=== PATIENT | female | born 1970 | race Caucasian/White ===

== ENCOUNTER → 2018-04-10 | Outpatient (CLI) | payer BC, OTHER ==
[~2018-04-10] MED LIST: ACET500; ALBIPROI INH; ALBU90OI; ALBU90OI INH; ALBU90OI6 INH; ATOR20 PO; ATOR40TA PO; AZIT500 PO; BENTYL20 MG PO; BENZ100A PO; CEPH500 PO; CIPR250 PO; CODGUAEL PO; CYCL10 PO; DIPATR PO; EPIN.3I IM; EPIPEN 2-P0.3 MG/0.3 IM; ESOM20; ESOM20 PO; ESTR2 PO; GEMF600; GLIP10 PO; GLIP2.5ER PO; HYDACE5 PO; HYDACE5325 PO; HYDACE7.5 PO; HYDGUAL120 PO; HYDMOR2 PO; HYOS.125 SL; IBUP600 PO; IBUP800; IBUP800 PO; INSULANPEN SC; LORA1 PO; METF500 PO; METF500C PO; NAPR500 PO; NAPR550 PO; Norco 5-325 Ta1 EACH PO; OXYACE5T PO; PROACE100 PO; PROM25 PO; Pyridium200 MG PO; QVAR7.3 G1 IH; RANI150 PO; RXHYDGUAS PO; RXHYDMOR2 PO; RXHYOS.125 PO; RXNAPNA550 PO; RXPROACE PO; RXPROM25 PO; RXSULTRIDS PO; RXTRAM50 PO; SITA25T2 PO; SULTRIDS PO; TRAM50 PO; prilosec
[2018-04-10 18:01] LABS: BASOPHILS ABSOLUTE AUTO 0.02 K/mm3 (0.00-0.23); BASOPHILS PERCENT AUTO 0 % (0-2); EOSINOPHILS ABSOLUTE AUTO 0.06 K/mm3 (0.00-0.68); EOSINOPHILS PERCENT AUTO 1 % (0-6); Hematocrit 39.9 % (33.0-51.0); IMMATURE GRAN ABSOLUTE AUTO 0.06 K/mm3 (0.00-0.10); IMMATURE GRAN PERCENT AUTO 1 % (0-1); LYMPHOCYTES ABSOLUTE AUTO 2.08 K/mm3 (0.84-5.20); LYMPHOCYTES PERCENT AUTO 24 % (21-46); MONOCYTES ABSOLUTE AUTO 0.57 K/mm3 (0.16-1.47); MONOCYTES PERCENT AUTO 7 % (4-13); Mean Corpuscular HGB 33.3 pg (26.0-34.0); Mean Corpuscular HGB Conc 35.1 g/dL (31.5-36.5); Mean Corpuscular Volume 95 fL (80-100); Mean Platelet Volume 11.4 fL (9.1-12.4); NEUTROPHILS ABSOLUTE AUTO 5.94 K/mm3 (1.96-9.15); NEUTROPHILS PERCENT AUTO 68 % (41-73); Platelet Count 217 K/mm3 (150-400); RDW Coefficient Variation 12.6 % (11.7-14.2); RDW Standard Deviation 43.6 fL (35.1-46.3); Red Blood Cell Count 4.21 M/mm3 (3.80-5.20); White Blood Cell Count 8.73 K/mm3 (4.00-11.30)
[2018-04-10 19:26] LABS: Alanine Aminotransfer (ALT/SGP 23 U/L (12-78); Albumin, Blood 3.5 g/dL (3.4-5.0); Albumin/Globulin Ratio 1.1 (0.8-1.8); Alk Phos 73 U/L (50-136); Anion Gap 11 mmol/L (6-16); Aspartate Aminotrans (AST/SGOT 11 U/L (12-37); Bilirubin, Total 0.7 mg/dL (0.1-1.0); Blood Urea Nitrogen 16 mg/dL (8-24); Bun/Creatinine Ratio 26.8 (12.0-20.0); CHOL/HDL RATIO 8.3; CO2, Blood 25 mmol/L (21-32); Calcium, Blood 8.9 mg/dL (8.5-10.1); Chloride, Blood 105 mmol/L (98-108); Cholesterol 232 mg/dL (50-200); Free Thyroxine 0.89 ng/dL (0.70-1.60); Globulin, Blood 3.1 g/dL (2.2-4.0); Glomerular Filtration Rate >60 (60-); Glucose, Blood 195 mg/dL (70-99); HDL Cholesterol 28 mg/dL (>39); LDL/HDL RATIO Unable to Calculate; Low Density Lipoprotein Chol Unable to Calculate mg/dL (0-110); Potassium, Blood 3.2 mmol/L (3.5-5.5); Sodium, Blood 141 mmol/L (136-145); Total Protein, Blood 6.6 g/dL (6.4-8.2); Triglycerides 764 mg/dL (30-160); Very Low Density Lipoprot Chol Unable to Calculate mg/dL (6-32)
== END | disposition home or self-care (01) ==
LOC: LAB 12:30 → LAB SHORT 12:30
PROVIDERS: Nurse Practitioner Adult Health
DX: E78.5 Hyperlipidemia, unspecified (principal); E11.40 Type 2 diabetes mellitus with diabetic neuropathy, unspecified; G62.9 Polyneuropathy, unspecified
CPT/HCPCS: 80053; 80061; 84439; 84443; 84681; 85025

== ENCOUNTER 2018-05-06 11:36 | Emergency (ER) | payer BC, OTHER ==
[~2018-05-06] VITALS: Ht 175.3 cm; Wt 79.8 kg
[2018-05-06 12:28] LABS: BASOPHILS ABSOLUTE AUTO 0.02 K/mm3 (0.00-0.23); BASOPHILS PERCENT AUTO 0 % (0-2); EOSINOPHILS ABSOLUTE AUTO 0.03 K/mm3 (0.00-0.68); EOSINOPHILS PERCENT AUTO 0 % (0-6); Hematocrit 45.3 % (33.0-51.0); Hemoglobin 15.4 g/dL (11.5-16.0); IMMATURE GRAN ABSOLUTE AUTO 0.04 K/mm3 (0.00-0.10); IMMATURE GRAN PERCENT AUTO 0 % (0-1); LYMPHOCYTES ABSOLUTE AUTO 2.09 K/mm3 (0.84-5.20); LYMPHOCYTES PERCENT AUTO 23 % (21-46); MONOCYTES ABSOLUTE AUTO 0.56 K/mm3 (0.16-1.47); MONOCYTES PERCENT AUTO 6 % (4-13); Mean Corpuscular HGB 32.8 pg (26.0-34.0); Mean Corpuscular Volume 97 fL (80-100); Mean Platelet Volume 10.6 fL (9.1-12.4); NEUTROPHILS ABSOLUTE AUTO 6.23 K/mm3 (1.96-9.15); NEUTROPHILS PERCENT AUTO 70 % (41-73); Platelet Count 244 K/mm3 (150-400); RDW Coefficient Variation 12.4 % (11.7-14.2); RDW Standard Deviation 43.9 fL (35.1-46.3); Red Blood Cell Count 4.69 M/mm3 (3.80-5.20); White Blood Cell Count 8.97 K/mm3 (4.00-11.30)
[2018-05-06 12:46] LABS: Alanine Aminotransfer (ALT/SGP 23 U/L (12-78); Albumin, Blood 3.8 g/dL (3.4-5.0); Albumin/Globulin Ratio 1.1 (0.8-1.8); Alk Phos 57 U/L (50-136); Anion Gap 9 mmol/L (6-16); Aspartate Aminotrans (AST/SGOT 8 U/L (12-37); Bilirubin, Total 0.4 mg/dL (0.1-1.0); Blood Urea Nitrogen 15 mg/dL (8-24); Bun/Creatinine Ratio 19.7 (12.0-20.0); CO2, Blood 27 mmol/L (21-32); CPK Creatine Kinase 47 U/L (26-193); Chloride, Blood 102 mmol/L (98-108); Creatinine, Blood 0.76 mg/dL (0.40-1.00); Globulin, Blood 3.4 g/dL (2.2-4.0); Glomerular Filtration Rate >60 (60-); Glucose, Blood 207 mg/dL (70-99); Magnesium, Blood 1.8 mg/dL (1.6-2.4); Potassium, Blood 3.8 mmol/L (3.5-5.5); Sodium, Blood 138 mmol/L (136-145); Total Protein, Blood 7.2 g/dL (6.4-8.2); Troponin I <0.015 ng/mL (0.000-0.040)
[2018-05-06 12:57] LABS: Bilirubin, Urine Neg (Neg); Blood, Urine Neg (Neg); Glucose Qualitative, Urine Neg (Neg); Ketones, Urine Neg (Neg); Leukocyte Esterase, Urine Neg (Neg); Nitrite, Urine Neg (Neg); Protein, Urine Neg (Neg); Specific Gravity, Urine 1.015 (1.003-1.022); Urobilinogen, Urine NORM (Normal); pH, Urine 6.5 (5.0-8.0)
[2018-05-06 13:23] LABS: Appearance, Urine Clear (Clear); Color, Urine Pale Yellow (P-Yellow)
[2018-05-06] MEDS ORDERED: ONDA4 PO (13:59)
[2018-05-06] MEDS ORDERED: Percocet 5-3251 EACH PO (13:59)
[2018-05-06 14:32] LABS: U Amphetamine Screen Not Detected; U Barbituate Screen Not Detected; U Benzodiazapine Screen Not Detected; U Buprenorphine Screen Not Detected; U Cannabinoids Screen Not Detected; U Cocaine Screen Not Detected; U Methadone Screen Not Detected; U Methamphetamine Screen Not Detected; U Opiates Screen Not Detected; U Oxycodone Screen Not Detected; U Phencyclidine Screen Not Detected; U Propoxyphene Screen Not Detected
== END 2018-05-06 14:20 | disposition home or self-care (01) ==
LOC: ER 11:36
PROVIDERS: Emergency Medicine
DX: K85.90 Acute pancreatitis without necrosis or infection, unspecified (principal); E11.65 Type 2 diabetes mellitus with hyperglycemia; R25.2 Cramp and spasm; F17.210 Nicotine dependence, cigarettes, uncomplicated; Z88.5 Allergy status to narcotic agent; Z91.030 Bee allergy status; Z79.84 Long term (current) use of oral hypoglycemic drugs; Z79.899 Other long term (current) drug therapy
CPT/HCPCS: 36415; 71046; 80053; 81003; 82550; 83690; 83735; 83880; 84484; 85025; 93005; 93010; 96374; 96375; 99285-25; J2405; J3010

== ENCOUNTER 2018-05-07 18:04 | Emergency (ER) | payer BC, OTHER ==
[~2018-05-07] VITALS: Ht 175.3 cm; Wt 79.8 kg
[~2018-05-07 18:04] MED LIST changes: +ONDA4 PO; +Percocet 5-3251 EACH PO
[2018-05-07 19:04] LABS: BASOPHILS ABSOLUTE AUTO 0.03 K/mm3 (0.00-0.23); BASOPHILS PERCENT AUTO 0 % (0-2); EOSINOPHILS ABSOLUTE AUTO 0.06 K/mm3 (0.00-0.68); EOSINOPHILS PERCENT AUTO 1 % (0-6); Hematocrit 42.8 % (33.0-51.0); Hemoglobin 15.4 g/dL (11.5-16.0); IMMATURE GRAN ABSOLUTE AUTO 0.05 K/mm3 (0.00-0.10); IMMATURE GRAN PERCENT AUTO 1 % (0-1); LYMPHOCYTES ABSOLUTE AUTO 2.78 K/mm3 (0.84-5.20); LYMPHOCYTES PERCENT AUTO 27 % (21-46); MONOCYTES ABSOLUTE AUTO 0.66 K/mm3 (0.16-1.47); MONOCYTES PERCENT AUTO 7 % (4-13); Mean Corpuscular HGB 34.5 pg (26.0-34.0); Mean Corpuscular Volume 96 fL (80-100); Mean Platelet Volume 10.4 fL (9.1-12.4); NEUTROPHILS ABSOLUTE AUTO 6.63 K/mm3 (1.96-9.15); NEUTROPHILS PERCENT AUTO 65 % (41-73); Platelet Count 250 K/mm3 (150-400); RDW Coefficient Variation 12.1 % (11.7-14.2); RDW Standard Deviation 42.7 fL (35.1-46.3); Red Blood Cell Count 4.47 M/mm3 (3.80-5.20); White Blood Cell Count 10.21 K/mm3 (4.00-11.30)
[2018-05-07 19:21] LABS: Alanine Aminotransfer (ALT/SGP 24 U/L (12-78); Albumin, Blood 3.7 g/dL (3.4-5.0); Albumin/Globulin Ratio 1.2 (0.8-1.8); Alk Phos 55 U/L (50-136); Anion Gap 8 mmol/L (6-16); Aspartate Aminotrans (AST/SGOT 10 U/L (12-37); Bilirubin, Total 0.1 mg/dL (0.1-1.0); Blood Urea Nitrogen 23 mg/dL (8-24); Bun/Creatinine Ratio 27.8 (12.0-20.0); CO2, Blood 25 mmol/L (21-32); Calcium, Blood 9.6 mg/dL (8.5-10.1); Chloride, Blood 105 mmol/L (98-108); Creatinine, Blood 0.83 mg/dL (0.40-1.00); Globulin, Blood 3.2 g/dL (2.2-4.0); Glomerular Filtration Rate >60 (60-); Glucose, Blood 144 mg/dL (70-99); Potassium, Blood 3.6 mmol/L (3.5-5.5); Sodium, Blood 138 mmol/L (136-145); Total Protein, Blood 6.9 g/dL (6.4-8.2)
== END 2018-05-07 21:32 | disposition home or self-care (01) ==
LOC: ER 18:04
PROVIDERS: Emergency Medicine
DX: K86.1 Other chronic pancreatitis (principal); E11.9 Type 2 diabetes mellitus without complications; F17.210 Nicotine dependence, cigarettes, uncomplicated; Z88.5 Allergy status to narcotic agent; Z91.030 Bee allergy status; Z79.899 Other long term (current) drug therapy; Z79.84 Long term (current) use of oral hypoglycemic drugs
CPT/HCPCS: 36415; 74177; 80053; 83690; 85025; 96361; 96374; 96375; 99284-25; J1170; J2405; J3010; J7030; Q9967

== ENCOUNTER → 2018-07-29 | Outpatient (CLI) | payer BC, OTHER ==
[~2018-07-29] MED LIST changes: +BASAGLAR K100 UNIT/1; +BASAGLAR K100 UNIT/1 SC; +Byetta5 MCG/0.02 SC; +DULO60 PO; +FENO160 PO; +GABA300 PO; +Humalog100 UNIT/1; +PHENY100ER; +VITAMIN E
== END | disposition home or self-care (01) ==
LOC: LAB SHORT 16:33 → LAB 16:33
DX: Z48.817 Encounter for surgical aftercare following surgery on the skin and subcutaneous tissue (principal)
CPT/HCPCS: 87070; 87077; 87147; 87186; 87205

== ENCOUNTER 2018-12-21 23:55 | Observation (INO) | payer OTHER ==
[~2018-12-21] VITALS: Ht 175.3 cm; Wt 79.9 kg
[2018-12-22 00:19] LABS: BASOPHILS ABSOLUTE AUTO 0.03 K/mm3 (0.00-0.23); BASOPHILS PERCENT AUTO 0 % (0-2); EOSINOPHILS PERCENT AUTO 1 % (0-6); Hematocrit 42.2 % (33.0-51.0); Hemoglobin 14.7 g/dL (11.5-16.0); IMMATURE GRAN ABSOLUTE AUTO 0.04 K/mm3 (0.00-0.10); IMMATURE GRAN PERCENT AUTO 1 % (0-1); LYMPHOCYTES ABSOLUTE AUTO 2.03 K/mm3 (0.84-5.20); LYMPHOCYTES PERCENT AUTO 26 % (21-46); MONOCYTES ABSOLUTE AUTO 0.66 K/mm3 (0.16-1.47); MONOCYTES PERCENT AUTO 8 % (4-13); Mean Corpuscular HGB 33.8 pg (26.0-34.0); Mean Corpuscular HGB Conc 34.8 g/dL (31.5-36.5); Mean Corpuscular Volume 97 fL (80-100); Mean Platelet Volume 11.2 fL (9.1-12.4); NEUTROPHILS ABSOLUTE AUTO 5.06 K/mm3 (1.96-9.15); NEUTROPHILS PERCENT AUTO 64 % (41-73); Platelet Count 221 K/mm3 (150-400); RDW Coefficient Variation 12.6 % (11.7-14.2); RDW Standard Deviation 45.1 fL (35.1-46.3); Red Blood Cell Count 4.35 M/mm3 (3.80-5.20); White Blood Cell Count 7.92 K/mm3 (4.00-11.30)
[2018-12-22 00:35] LABS: International Normalized Ratio 0.97; Prothrombin Time Results 10.3 Sec (9.7-11.5)
[2018-12-22 00:39] LABS: Alanine Aminotransfer (ALT/SGP 26 U/L (12-78); Albumin, Blood 3.9 g/dL (3.4-5.0); Albumin/Globulin Ratio 1.2 (0.8-1.8); Alk Phos 89 U/L (50-136); Anion Gap 6 mmol/L (6-16); Aspartate Aminotrans (AST/SGOT 7 U/L (12-37); Bilirubin, Total 0.2 mg/dL (0.1-1.0); Blood Urea Nitrogen 10 mg/dL (8-24); Bun/Creatinine Ratio 16.6 (12.0-20.0); CO2, Blood 27 mmol/L (21-32); Calcium, Blood 8.8 mg/dL (8.5-10.1); Chloride, Blood 104 mmol/L (98-108); Globulin, Blood 3.2 g/dL (2.2-4.0); Glomerular Filtration Rate >60 (60-); Glucose, Blood 321 mg/dL (70-99); Potassium, Blood 3.7 mmol/L (3.5-5.5); Sodium, Blood 137 mmol/L (136-145); Total Protein, Blood 7.1 g/dL (6.4-8.2); Troponin I <0.015 ng/mL (0.000-0.040)
[2018-12-22] MEDS ORDERED: PANT20 (00:41)
[2018-12-22] MEDS ORDERED: CLOP75 (00:41)
[2018-12-22] MEDS ORDERED: LO-DOSE ASPIRIN81 MG PO (00:41)
[2018-12-22] MEDS ORDERED: ATOR10 (00:43)
[2018-12-22 02:48] LABS: Cholesterol 180 mg/dL (50-200); HDL Cholesterol 30 mg/dL (>39); LDL/HDL RATIO 2.4; Low Density Lipoprotein Chol 73 mg/dL (0-110); Triglycerides 385 mg/dL (30-160); Very Low Density Lipoprot Chol 77 mg/dL (6-32)
[2018-12-22] MEDS ORDERED: GABA300 PO (04:24)
--- NOTE | 2018-12-22 04:58 | NUR ---
SHIFT SUMMARY PT A&O X4 T/O SHIFT; PT ARRIVED ON UNIT JUST BEFORE 0400. PT STS CHEST PAIN IMPROVED SINCE ARRIVAL IN ER. EVEN WOB; RA. VSS. IV GTT PER EMAR. TELEMETRY IN PLACE; SB/SR WITH 1 DEGREE BLOCK PER TURNER IN. CALL LIGHT IN REACH. WCTM UNTIL REPORT TO DAY SHIFT RN.
[2018-12-22 08:28] LABS: Hematocrit 41.3 % (33.0-51.0); Hemoglobin 14.1 g/dL (11.5-16.0); Mean Corpuscular HGB 32.6 pg (26.0-34.0); Mean Corpuscular HGB Conc 34.1 g/dL (31.5-36.5); Mean Corpuscular Volume 95 fL (80-100); Mean Platelet Volume 11.2 fL (9.1-12.4); Platelet Count 215 K/mm3 (150-400); RDW Coefficient Variation 12.6 % (11.7-14.2); RDW Standard Deviation 44.5 fL (35.1-46.3); Red Blood Cell Count 4.33 M/mm3 (3.80-5.20)
[2018-12-22 08:48] LABS: Alanine Aminotransfer (ALT/SGP 21 U/L (12-78); Albumin, Blood 3.3 g/dL (3.4-5.0); Albumin/Globulin Ratio 1.1 (0.8-1.8); Alk Phos 74 U/L (50-136); Anion Gap 5 mmol/L (6-16); Aspartate Aminotrans (AST/SGOT 14 U/L (12-37); Bilirubin, Total 0.3 mg/dL (0.1-1.0); Blood Urea Nitrogen 9 mg/dL (8-24); Bun/Creatinine Ratio 14.9 (12.0-20.0); CO2, Blood 27 mmol/L (21-32); Calcium, Blood 8.2 mg/dL (8.5-10.1); Chloride, Blood 109 mmol/L (98-108); Creatinine, Blood 0.61 mg/dL (0.40-1.00); Globulin, Blood 2.9 g/dL (2.2-4.0); Glomerular Filtration Rate >60 (60-); Glucose, Blood 192 mg/dL (70-99); Potassium, Blood 3.9 mmol/L (3.5-5.5); Sodium, Blood 141 mmol/L (136-145); Total Protein, Blood 6.2 g/dL (6.4-8.2)
[2018-12-22 08:50] LABS: CPK Creatine Kinase 47 U/L (26-193); Troponin I <0.015 ng/mL (0.000-0.040)
--- NOTE | 2018-12-22 09:04 | NUR ---
PT COUNSELED ON THE IMPORTANCE OF SMOKING CESSATION. SHE IS ADAMANT THAT SHE IS GOING OUTSIDE TO SMOKE. SHE HAS NEUROPATHY IN BOTH FEET. REPORTS AMBULATION IS AT BASELINE. SHE IS GOING OUTSIDE TO SMOKE UNASSISTED, AGAINST ADVISE.
--- NOTE | 2018-12-22 09:48 | NUR ---
REPORT OF ACTIVE CHEST PAIN POST WALK OUTSIDE TO SMOKE. PT REPORTS PAIN ALEVIATED WITH 1 DOSE OF NITRO. SUPERVISOR CARTOGRAPHY IN ROOM NOW FOR TEST.
--- NOTE | 2018-12-22 13:36 | NUR ---
PT TO [facility] VIA W/C FOR IMAGING PORTION OF RESTING CARDIOLYTE TEST.
--- NOTE | 2018-12-22 15:51 | NUR ---
PT STS TOLD HER NOT TO TAKE METFORMIN. SPK WITH AND ELYSE IN NUC [facility]. NO NEED TO HOLD METFORMIN AT THIS TIME FOR STRESS TEST. TELEPHONE ORDER TO RESUME METFORMIN PREVIOUSLY ORDERED.
[2018-12-22 16:45] LABS: CPK Creatine Kinase 37 U/L (26-193); Troponin I <0.015 ng/mL (0.000-0.040)
--- NOTE | 2018-12-22 21:03 | NUR ---
SHIFT SUMMARY 2 REPORTS OF CP THIS SHIFT. EACH OCCATION PAIN RESOLVED WITH 1 DOSE OF NITRO. VSS. NO EVENTS NOTED PER MINE ANALYST. BOTH TIME CP REPORTED WAS AFTER GOING OUTSIDE TO SMOKE AND FAMILY TALKING ABOUT STRESSFUL SITUATIONS WITH PT'S DAUGHTER. PT DENIES HX OF ANXIETY. RESPIRATIONS EVEN AND UNLABORED. PT EDUCATED MULTIPULE TIMES ABOUT REMAINING IN ROOM WE CAN NOT MONITOR HER WHEN SHE IS OUT. TOLERATING PO INTAKE. DENIES N/V. REPORT GIVEN TO ISH VALENCIA.
--- NOTE | 2018-12-22 21:50 | NUR ---
PT REQEUSTS TO GO OUTSIDE WITH TO SMOKE A CIGARETTE. PT ENCOURAGED TO ABSTAIN FROM SMOKING. INFORMED THAT SMOKING CAN ADD STRESS TO THE HEART WHICH MAY LEAD TO INACCURATE RESULTS ON MORNING STRESS TEST. REMINDED PT THAT TELEMETRY IS NOT MONITORED WHILE OUTSIDE. PT UNRECEPTIVE TO EDUCATION PROVIDED.
[2018-12-23 06:07] LABS: BASOPHILS ABSOLUTE AUTO 0.03 K/mm3 (0.00-0.23); BASOPHILS PERCENT AUTO 0 % (0-2); EOSINOPHILS ABSOLUTE AUTO 0.13 K/mm3 (0.00-0.68); EOSINOPHILS PERCENT AUTO 2 % (0-6); Hematocrit 40.7 % (33.0-51.0); Hemoglobin 13.9 g/dL (11.5-16.0); IMMATURE GRAN ABSOLUTE AUTO 0.04 K/mm3 (0.00-0.10); IMMATURE GRAN PERCENT AUTO 1 % (0-1); LYMPHOCYTES ABSOLUTE AUTO 2.05 K/mm3 (0.84-5.20); LYMPHOCYTES PERCENT AUTO 26 % (21-46); MONOCYTES PERCENT AUTO 8 % (4-13); Mean Corpuscular HGB 32.9 pg (26.0-34.0); Mean Corpuscular HGB Conc 34.2 g/dL (31.5-36.5); Mean Corpuscular Volume 96 fL (80-100); Mean Platelet Volume 11.3 fL (9.1-12.4); NEUTROPHILS ABSOLUTE AUTO 5.05 K/mm3 (1.96-9.15); NEUTROPHILS PERCENT AUTO 64 % (41-73); Platelet Count 234 K/mm3 (150-400); RDW Coefficient Variation 12.7 % (11.7-14.2); RDW Standard Deviation 45.1 fL (35.1-46.3); Red Blood Cell Count 4.23 M/mm3 (3.80-5.20)
[2018-12-23 06:34] LABS: Alanine Aminotransfer (ALT/SGP 22 U/L (12-78); Albumin, Blood 3.2 g/dL (3.4-5.0); Albumin/Globulin Ratio 1.1 (0.8-1.8); Alk Phos 72 U/L (50-136); Anion Gap 7 mmol/L (6-16); Aspartate Aminotrans (AST/SGOT 14 U/L (12-37); Bilirubin, Total 0.2 mg/dL (0.1-1.0); Blood Urea Nitrogen 11 mg/dL (8-24); Bun/Creatinine Ratio 17.7 (12.0-20.0); CHOL/HDL RATIO 7.2; CO2, Blood 26 mmol/L (21-32); Calcium, Blood 8.2 mg/dL (8.5-10.1); Chloride, Blood 106 mmol/L (98-108); Cholesterol 180 mg/dL (50-200); Creatinine, Blood 0.62 mg/dL (0.40-1.00); Globulin, Blood 2.8 g/dL (2.2-4.0); Glomerular Filtration Rate >60 (60-); Glucose, Blood 256 mg/dL (70-99); HDL Cholesterol 25 mg/dL (>39); Potassium, Blood 3.7 mmol/L (3.5-5.5); Sodium, Blood 139 mmol/L (136-145); Triglycerides 517 mg/dL (30-160); Very Low Density Lipoprot Chol Unable to Calculate mg/dL (6-32)
[2018-12-23 06:41] LABS: LDL/HDL RATIO Unable to Calculate; Low Density Lipoprotein Chol Unable to Calculate mg/dL (0-110)
--- NOTE | 2018-12-23 07:31 | NUR ---
SHIFT SUMMARY: PT DENIES CHEST PAIN AND SOB THROUGHOUT NIGHT. PT OUTSIDE TO SMOKE ONCE (SEE OTHER NOTE). NPO FOR SCHED STRESS TEST THIS AFTERNOON. NO CAFFEINE INTAKE. TELE SHOWS NS WITH FIRST DEGREE BLOCK AT HR OF 64. ENC LOW STIMULATING ENVIRONMENT FOR PT.
--- NOTE | 2018-12-23 19:03 | NUR ---
DISCHARGE PT HAS DONE WELL TODAY. DIDN'T C/O CP BUT JUST A GENERAL FATIGUED FEELING. D/C INSTRUCTIONS DISCUSSED. AMBULATED OUT WITH SPOUSE.
== END 2018-12-23 18:55 | disposition home or self-care (01) ==
LOC: ER 23:55 → SURS 23:56 → MEDS 23:56 → ER 12-22 03:45 → SURS 12-22 04:02
PROVIDERS: Internal Medicine; Physician Assistant; ADMIT Internal Medicine
DX: R07.9 Chest pain, unspecified (principal); I10 Essential (primary) hypertension; E11.9 Type 2 diabetes mellitus without complications; E78.5 Hyperlipidemia, unspecified; E11.51 Type 2 diabetes mellitus with diabetic peripheral angiopathy without gangrene; Z82.49 Family history of ischemic heart disease and other diseases of the circulatory system; F17.200 Nicotine dependence, unspecified, uncomplicated; F17.210 Nicotine dependence, cigarettes, uncomplicated; Z79.899 Other long term (current) drug therapy; Z79.82 Long term (current) use of aspirin
CPT/HCPCS: 36415; 71045; 71260; 78452; 80053; 80061; 82550; 82947; 83036; 83690; 84443; 84484; 85025; 85027; 85610; 85730; 93005; 93010; 93017; 93306; 96374-59; 96376-59; 99285-25; A9500; C9113; J0706; J1650; J2785; J3010; J7030; Q9967

== ENCOUNTER → 2019-06-03 | Outpatient (CLI) | payer OTHER ==
[~2019-06-03] MED LIST changes: +ACETAMINOPHEN500 MG PO; +ATOR10; +CLOP75; +KETO10 PO; +LO-DOSE ASPIRIN81 MG PO; +PANT20
== END | disposition home or self-care (01) ==
LOC: LAB 12:03 → LAB SHORT 12:03
DX: E11.51 Type 2 diabetes mellitus with diabetic peripheral angiopathy without gangrene (principal)
CPT/HCPCS: 82043

== ENCOUNTER 2019-10-03 17:39 | Emergency (ER) | payer OTHER ==
[~2019-10-03] VITALS: Ht 175.3 cm; Wt 83.9 kg
[2019-10-03] MEDS ORDERED: XARELTO15 MG PO (21:54)
[2019-10-03 22:31] LABS: BASOPHILS ABSOLUTE AUTO 0.04 K/mm3 (0.00-0.23); BASOPHILS PERCENT AUTO 0 % (0-2); EOSINOPHILS PERCENT AUTO 1 % (0-6); Hematocrit 43.3 % (33.0-51.0); Hemoglobin 15.1 g/dL (11.5-16.0); IMMATURE GRAN ABSOLUTE AUTO 0.06 K/mm3 (0.00-0.10); IMMATURE GRAN PERCENT AUTO 1 % (0-1); LYMPHOCYTES ABSOLUTE AUTO 3.07 K/mm3 (0.84-5.20); LYMPHOCYTES PERCENT AUTO 31 % (21-46); MONOCYTES ABSOLUTE AUTO 0.78 K/mm3 (0.16-1.47); MONOCYTES PERCENT AUTO 8 % (4-13); Mean Corpuscular HGB 33.4 pg (26.0-34.0); Mean Corpuscular HGB Conc 34.9 g/dL (31.5-36.5); Mean Corpuscular Volume 96 fL (80-100); Mean Platelet Volume 10.6 fL (9.1-12.4); NEUTROPHILS ABSOLUTE AUTO 5.81 K/mm3 (1.96-9.15); NEUTROPHILS PERCENT AUTO 59 % (41-73); Platelet Count 276 K/mm3 (150-400); RDW Coefficient Variation 12.8 % (11.7-14.2); RDW Standard Deviation 45.5 fL (35.1-46.3); Red Blood Cell Count 4.52 M/mm3 (3.80-5.20); White Blood Cell Count 9.86 K/mm3 (4.00-11.30)
[2019-10-03 22:45] LABS: Alanine Aminotransfer (ALT/SGP 29 U/L (12-78); Albumin, Blood 3.8 g/dL (3.4-5.0); Albumin/Globulin Ratio 1.1 (0.8-1.8); Alk Phos 114 U/L (50-136); Anion Gap 8 mmol/L (6-16); Aspartate Aminotrans (AST/SGOT 16 U/L (12-37); Bilirubin, Total 0.2 mg/dL (0.1-1.0); Blood Urea Nitrogen 11 mg/dL (8-24); Bun/Creatinine Ratio 16.5 (12.0-20.0); CO2, Blood 28 mmol/L (21-32); Calcium, Blood 9.7 mg/dL (8.5-10.1); Chloride, Blood 104 mmol/L (98-108); Creatinine, Blood 0.67 mg/dL (0.40-1.00); Globulin, Blood 3.5 g/dL (2.2-4.0); Glomerular Filtration Rate >60 (60-); Glucose, Blood 185 mg/dL (70-99); Potassium, Blood 3.6 mmol/L (3.5-5.5); Sodium, Blood 140 mmol/L (136-145); Total Protein, Blood 7.3 g/dL (6.4-8.2)
[2019-10-03 22:48] LABS: International Normalized Ratio 0.97; Prothrombin Time Results 10.4 Sec (9.7-11.5)
== END 2019-10-03 23:16 | disposition home or self-care (01) ==
LOC: ER 17:39
PROVIDERS: Emergency Medicine
DX: E11.51 Type 2 diabetes mellitus with diabetic peripheral angiopathy without gangrene (principal); I73.9 Peripheral vascular disease, unspecified; E11.40 Type 2 diabetes mellitus with diabetic neuropathy, unspecified; F17.210 Nicotine dependence, cigarettes, uncomplicated; Z88.5 Allergy status to narcotic agent; Z91.030 Bee allergy status; Z79.82 Long term (current) use of aspirin; Z79.4 Long term (current) use of insulin; Z79.899 Other long term (current) drug therapy
CPT/HCPCS: 80053; 82947; 85025; 85610; 85730; 93922; 99284-25

== ENCOUNTER → 2020-01-21 | Outpatient (CLI) | payer OTHER ==
[~2020-01-21] MED LIST changes: +XARELTO15 MG PO
== END | disposition home or self-care (01) ==
LOC: LAB 19:31 → LAB SHORT 19:31
DX: R31.0 Gross hematuria (principal)
CPT/HCPCS: 87077; 87086; 87186

== ENCOUNTER 2020-02-05 15:05 | Emergency (ER) | payer OTHER ==
[~2020-02-05] VITALS: Ht 175.3 cm; Wt 78.9 kg
[2020-02-05 15:30] LABS: Source, Urine Clean Catch
[2020-02-05 15:39] LABS: Bilirubin, Urine Neg (Neg); Blood, Urine 5+ (Neg); Glucose Qualitative, Urine 4+ (Neg); Ketones, Urine Neg (Neg); Leukocyte Esterase, Urine Neg (Neg); Nitrite, Urine Neg (Neg); Protein, Urine 2+ (Neg); Specific Gravity, Urine 1.015 (1.003-1.022); Urobilinogen, Urine NORM (Normal); pH, Urine 6.5 (5.0-8.0)
[2020-02-05 15:46] LABS: Appearance, Urine Hazy (Clear); Color, Urine Yellow (P-Yellow)
[2020-02-05 15:47] LABS: Bacteria Rare /hpf; Red Blood Cells, Urine TNTC /hpf (0-2); Squamous Epithelial Cells Rare /hpf (Few); White Blood Cells, Urine Not Seen /hpf (0-5)
[2020-02-05 16:00] LABS: Base Excess Venous -0.3 mmol/L; Bicarbonate Venous 24.6 mmol/L (24.0-30.0); PCO2 Venous 35 mmHg (38-42); PO2 Venous 135 mmHg (38-42); pH Blood Venous 7.44 (7.34-7.37)
[2020-02-05 16:55] LABS: BASOPHILS ABSOLUTE AUTO 0.04 K/mm3 (0.00-0.23); BASOPHILS PERCENT AUTO 0 % (0-2); EOSINOPHILS ABSOLUTE AUTO 0.19 K/mm3 (0.00-0.68); EOSINOPHILS PERCENT AUTO 2 % (0-6); Hemoglobin 14.1 g/dL (11.5-16.0); IMMATURE GRAN ABSOLUTE AUTO 0.08 K/mm3 (0.00-0.10); IMMATURE GRAN PERCENT AUTO 1 % (0-1); LYMPHOCYTES ABSOLUTE AUTO 2.56 K/mm3 (0.84-5.20); LYMPHOCYTES PERCENT AUTO 22 % (21-46); MONOCYTES ABSOLUTE AUTO 0.56 K/mm3 (0.16-1.47); MONOCYTES PERCENT AUTO 5 % (4-13); Mean Corpuscular HGB 32.6 pg (26.0-34.0); Mean Corpuscular HGB Conc 33.6 g/dL (31.5-36.5); Mean Corpuscular Volume 97 fL (80-100); Mean Platelet Volume 10.9 fL (9.1-12.4); NEUTROPHILS ABSOLUTE AUTO 8.03 K/mm3 (1.96-9.15); NEUTROPHILS PERCENT AUTO 70 % (41-73); Platelet Count 318 K/mm3 (150-400); RDW Coefficient Variation 12.9 % (11.7-14.2); RDW Standard Deviation 46.4 fL (35.1-46.3); Red Blood Cell Count 4.33 M/mm3 (3.80-5.20); White Blood Cell Count 11.46 K/mm3 (4.00-11.30)
[2020-02-05 17:29] LABS: Alanine Aminotransfer (ALT/SGP 24 U/L (12-78); Albumin, Blood 3.5 g/dL (3.4-5.0); Alk Phos 76 U/L (50-136); Anion Gap 8 mmol/L (6-16); Aspartate Aminotrans (AST/SGOT 22 U/L (12-37); Bilirubin, Total 0.3 mg/dL (0.1-1.0); Blood Urea Nitrogen 16 mg/dL (8-24); Bun/Creatinine Ratio 20.2 (12.0-20.0); CO2, Blood 23 mmol/L (21-32); Calcium, Blood 9.3 mg/dL (8.5-10.1); Chloride, Blood 107 mmol/L (98-108); Creatinine, Blood 0.79 mg/dL (0.40-1.00); Globulin, Blood 3.6 g/dL (2.2-4.0); Glomerular Filtration Rate >60 (60-); Glucose, Blood 256 mg/dL (70-99); Sodium, Blood 138 mmol/L (136-145); Total Protein, Blood 7.1 g/dL (6.4-8.2)
[2020-02-05] MEDS ORDERED: Percocet 5-3251 EACH PO (18:42)
== END 2020-02-05 19:05 | disposition home or self-care (01) ==
LOC: ER 15:05
PROVIDERS: Physician Assistant
DX: N13.2 Hydronephrosis with renal and ureteral calculous obstruction (principal); E11.51 Type 2 diabetes mellitus with diabetic peripheral angiopathy without gangrene; I73.9 Peripheral vascular disease, unspecified; E11.40 Type 2 diabetes mellitus with diabetic neuropathy, unspecified; K21.9 Gastro-esophageal reflux disease without esophagitis; F17.210 Nicotine dependence, cigarettes, uncomplicated; Z91.030 Bee allergy status; Z88.5 Allergy status to narcotic agent; Z79.899 Other long term (current) drug therapy; Z79.02 Long term (current) use of antithrombotics/antiplatelets; Z79.82 Long term (current) use of aspirin; Z79.4 Long term (current) use of insulin
CPT/HCPCS: 36415; 74177; 80053; 81001; 81025; 82803; 83690; 85025; 96361-59; 96374-59; 96375-59; 96376-59; 99284-25; A9270; J1170; J1885; J7030

== ENCOUNTER 2020-02-13 13:40 | Emergency (ER) | payer OTHER ==
[~2020-02-13] VITALS: Ht 175.3 cm; Wt 79.4 kg
[2020-02-13 14:11] LABS: BASOPHILS ABSOLUTE AUTO 0.04 K/mm3 (0.00-0.23); BASOPHILS PERCENT AUTO 0 % (0-2); EOSINOPHILS ABSOLUTE AUTO 0.18 K/mm3 (0.00-0.68); EOSINOPHILS PERCENT AUTO 2 % (0-6); Hematocrit 40.1 % (33.0-51.0); Hemoglobin 13.8 g/dL (11.5-16.0); IMMATURE GRAN ABSOLUTE AUTO 0.06 K/mm3 (0.00-0.10); IMMATURE GRAN PERCENT AUTO 1 % (0-1); LYMPHOCYTES ABSOLUTE AUTO 1.35 K/mm3 (0.84-5.20); LYMPHOCYTES PERCENT AUTO 13 % (21-46); MONOCYTES ABSOLUTE AUTO 0.56 K/mm3 (0.16-1.47); MONOCYTES PERCENT AUTO 6 % (4-13); Mean Corpuscular HGB 32.5 pg (26.0-34.0); Mean Corpuscular HGB Conc 34.4 g/dL (31.5-36.5); Mean Corpuscular Volume 95 fL (80-100); Mean Platelet Volume 10.3 fL (9.1-12.4); NEUTROPHILS ABSOLUTE AUTO 7.89 K/mm3 (1.96-9.15); NEUTROPHILS PERCENT AUTO 78 % (41-73); Platelet Count 319 K/mm3 (150-400); RDW Coefficient Variation 12.7 % (11.7-14.2); RDW Standard Deviation 44.3 fL (35.1-46.3); Red Blood Cell Count 4.24 M/mm3 (3.80-5.20); White Blood Cell Count 10.08 K/mm3 (4.00-11.30)
[2020-02-13 14:28] LABS: Alanine Aminotransfer (ALT/SGP 17 U/L (12-78); Albumin, Blood 3.5 g/dL (3.4-5.0); Albumin/Globulin Ratio 0.9 (0.8-1.8); Alk Phos 89 U/L (50-136); Anion Gap 6 mmol/L (6-16); Aspartate Aminotrans (AST/SGOT 8 U/L (12-37); Bilirubin, Total 0.2 mg/dL (0.1-1.0); Blood Urea Nitrogen 16 mg/dL (8-24); Bun/Creatinine Ratio 16.6 (12.0-20.0); CO2, Blood 30 mmol/L (21-32); Calcium, Blood 8.7 mg/dL (8.5-10.1); Chloride, Blood 103 mmol/L (98-108); Creatinine, Blood 0.97 mg/dL (0.40-1.00); Globulin, Blood 3.7 g/dL (2.2-4.0); Glomerular Filtration Rate >60 (60-); Glucose, Blood 297 mg/dL (70-99); Potassium, Blood 3.8 mmol/L (3.5-5.5); Sodium, Blood 139 mmol/L (136-145); Total Protein, Blood 7.2 g/dL (6.4-8.2)
[2020-02-13 14:33] LABS: Source, Urine Catheter
[2020-02-13 14:36] LABS: Blood, Urine 5+ (Neg); Glucose Qualitative, Urine 3+ (Neg); Ketones, Urine 1+ (Neg); Leukocyte Esterase, Urine 2+ (Neg); Nitrite, Urine Pos (Neg); Protein, Urine 3+ (Neg); Specific Gravity, Urine 1.015 (1.003-1.022); Urobilinogen, Urine 3+ (Normal)
[2020-02-13 14:53] LABS: Appearance, Urine Bloody (Clear); Bilirubin, Urine 2+ (Neg); Color, Urine Red (P-Yellow)
[2020-02-13 14:54] LABS: Red Blood Cells, Urine TNTC /hpf (0-2)
[2020-02-13 14:55] LABS: Bacteria Mod /hpf; Squamous Epithelial Cells Not Seen /hpf (Few)
[2020-02-13] MEDS ORDERED: Cilostazol100 MG PO (16:24)
== END 2020-02-13 17:08 | disposition home or self-care (01) ==
LOC: ER 13:40
PROVIDERS: Emergency Medicine
DX: N39.0 Urinary tract infection, site not specified (principal); N13.2 Hydronephrosis with renal and ureteral calculous obstruction; F17.210 Nicotine dependence, cigarettes, uncomplicated
CPT/HCPCS: 51701; 74177; 80053; 81001; 85025; 87086; 96365-59; 96375-59; 99284-25; J0696; J1885; Q9967

== ENCOUNTER 2020-04-13 18:07 | Emergency (ER) | payer OTHER ==
[~2020-04-13] VITALS: Ht 172.7 cm; Wt 79.8 kg
[~2020-04-13 18:07] MED LIST changes: +Cilostazol100 MG PO
[2020-04-13] MEDS ORDERED: BASAGLAR K100 UNIT/4 SC ×2 (20:36→20:37)
[2020-04-13] MEDS ORDERED: HUMALOG100 UNIT/1 (20:37)
[2020-04-13] MEDS ORDERED: CLON.5 (20:38)
[2020-04-13] MEDS ORDERED: OLAN10 (20:38)
[2020-04-13] MEDS ORDERED: VENL150ER PO (20:39)
[2020-04-13] MEDS ORDERED: VENL75ER PO (20:39)
[2020-05-06] MEDS ORDERED: INSULIN LI100 UNIT/6 SQ (19:31)
[2020-05-06] MEDS ORDERED: LANTUS SOL100 UNIT/1 SQ (19:31)
== END 2020-04-13 22:08 | disposition home or self-care (01) ==
LOC: ER 18:07
DX: E11.51 Type 2 diabetes mellitus with diabetic peripheral angiopathy without gangrene (principal); I73.9 Peripheral vascular disease, unspecified; M79.662 Pain in left lower leg; F17.200 Nicotine dependence, unspecified, uncomplicated; K21.9 Gastro-esophageal reflux disease without esophagitis; E11.40 Type 2 diabetes mellitus with diabetic neuropathy, unspecified; E78.5 Hyperlipidemia, unspecified; Z91.030 Bee allergy status; Z88.5 Allergy status to narcotic agent; Z79.4 Long term (current) use of insulin; Z79.899 Other long term (current) drug therapy; Z79.82 Long term (current) use of aspirin
CPT/HCPCS: 36415; 85027; 85379; 93971; 99283-25

== ENCOUNTER 2020-06-06 18:33 | Emergency (ER) | payer OTHER ==
[~2020-06-06] VITALS: Ht 175.3 cm; Wt 81.7 kg
[~2020-06-06 18:33] MED LIST changes: +BASAGLAR K100 UNIT/4 SC; +CLON.5; +HUMALOG100 UNIT/1; +INSULIN LI100 UNIT/6 SQ; +LANTUS SOL100 UNIT/1 SQ; +OLAN10; +VENL150ER PO; +VENL75ER PO
[2020-06-06 19:10] LABS: BASOPHILS ABSOLUTE AUTO 0.03 K/mm3 (0.00-0.23); BASOPHILS PERCENT AUTO 0 % (0-2); EOSINOPHILS PERCENT AUTO 1 % (0-6); Hematocrit 41.9 % (33.0-51.0); IMMATURE GRAN ABSOLUTE AUTO 0.03 K/mm3 (0.00-0.10); IMMATURE GRAN PERCENT AUTO 0 % (0-1); LYMPHOCYTES ABSOLUTE AUTO 2.11 K/mm3 (0.84-5.20); LYMPHOCYTES PERCENT AUTO 27 % (21-46); MONOCYTES ABSOLUTE AUTO 0.57 K/mm3 (0.16-1.47); MONOCYTES PERCENT AUTO 7 % (4-13); Mean Corpuscular HGB 32.7 pg (26.0-34.0); Mean Corpuscular HGB Conc 33.4 g/dL (31.5-36.5); Mean Corpuscular Volume 98 fL (80-100); Mean Platelet Volume 10.7 fL (9.1-12.4); NEUTROPHILS ABSOLUTE AUTO 5.06 K/mm3 (1.96-9.15); NEUTROPHILS PERCENT AUTO 64 % (41-73); Platelet Count 215 K/mm3 (150-400); RDW Standard Deviation 46.4 fL (35.1-46.3); Red Blood Cell Count 4.28 M/mm3 (3.80-5.20)
[2020-06-06 19:32] LABS: Alanine Aminotransfer (ALT/SGP 33 U/L (12-78); Albumin, Blood 3.4 g/dL (3.4-5.0); Albumin/Globulin Ratio 0.9 (0.8-1.8); Alk Phos 122 U/L (50-136); Anion Gap 11 mmol/L (6-16); Aspartate Aminotrans (AST/SGOT 15 U/L (12-37); Beta-hydroxybutyrate 1.3 mg/dL (0.2-2.8); Bilirubin, Total 0.2 mg/dL (0.1-1.0); Blood Urea Nitrogen 9 mg/dL (8-24); Bun/Creatinine Ratio 14.1 (12.0-20.0); CO2, Blood 22 mmol/L (21-32); Chloride, Blood 100 mmol/L (98-108); Creatinine, Blood 0.64 mg/dL (0.40-1.00); Globulin, Blood 3.6 g/dL (2.2-4.0); Glomerular Filtration Rate >60 (60-); Glucose, Blood 462 mg/dL (70-99); Sodium, Blood 133 mmol/L (136-145)
[2020-06-06 19:49] LABS: Source, Urine Clean Catch
[2020-06-06 19:51] LABS: Appearance, Urine Clear (Clear); Bilirubin, Urine Neg (Neg); Blood, Urine Neg (Neg); Color, Urine Yellow (P-Yellow); Glucose Qualitative, Urine 4+ (Neg); Ketones, Urine Neg (Neg); Leukocyte Esterase, Urine Neg (Neg); Nitrite, Urine Neg (Neg); Protein, Urine Neg (Neg); Specific Gravity, Urine 1.015 (1.003-1.022); Urobilinogen, Urine NORM (Normal)
[2020-06-06 20:12] LABS: Base Excess Venous 0.6 mmol/L; Bicarbonate Venous 24.9 mmol/L (24.0-30.0); PCO2 Venous 41.3 mmHg (38-42); PO2 Venous 117 mmHg (38-42)
== END 2020-06-06 21:55 | disposition home or self-care (01) ==
LOC: ER 18:33
PROVIDERS: Emergency Medicine
DX: E11.65 Type 2 diabetes mellitus with hyperglycemia (principal); E78.1 Pure hyperglyceridemia; E11.40 Type 2 diabetes mellitus with diabetic neuropathy, unspecified; E11.51 Type 2 diabetes mellitus with diabetic peripheral angiopathy without gangrene; K21.9 Gastro-esophageal reflux disease without esophagitis; E78.5 Hyperlipidemia, unspecified; F17.210 Nicotine dependence, cigarettes, uncomplicated; Z91.030 Bee allergy status; Z88.5 Allergy status to narcotic agent; Z79.4 Long term (current) use of insulin; Z79.82 Long term (current) use of aspirin; Z79.899 Other long term (current) drug therapy; Z87.442 Personal history of urinary calculi
CPT/HCPCS: 36415; 80053; 81003; 82010; 82803; 82947; 85025; 93005; 93010; 96361; 96374; 99284-25; J1885; J7030

== ENCOUNTER 2020-06-23 21:49 | Emergency (ER) | payer OTHER | END 2020-06-23 23:34 | disposition home or self-care (01) | LOC: ER 21:49 | DX: S63.501A Unspecified sprain of right wrist, initial encounter (principal); E11.51 Type 2 diabetes mellitus with diabetic peripheral angiopathy without gangrene; F17.210 Nicotine dependence, cigarettes, uncomplicated; Z91.030 Bee allergy status; Z88.5 Allergy status to narcotic agent; Z79.4 Long term (current) use of insulin; Z79.82 Long term (current) use of aspirin; Z79.899 Other long term (current) drug therapy; W22.01XA Walked into wall, initial encounter ==

== ENCOUNTER 2020-07-05 16:40 | Observation (INO) | payer OTHER ==
[~2020-07-05] VITALS: Ht 175.3 cm; Wt 87.6 kg
[~2020-07-05 16:40] MED LIST changes: +ASPIR 8181 M1 PO; -ATOR10; -CLON.5; +CLON.5 PO; -LO-DOSE ASPIRIN81 MG PO; -OLAN10; +OLAN10 PO
[2020-07-05 23:30] LABS: BASOPHILS ABSOLUTE AUTO 0.03 K/mm3 (0.00-0.23); BASOPHILS PERCENT AUTO 1 % (0-2); EOSINOPHILS PERCENT AUTO 2 % (0-6); Hematocrit 40.2 % (33.0-51.0); Hemoglobin 14.1 g/dL (11.5-16.0); IMMATURE GRAN ABSOLUTE AUTO 0.03 K/mm3 (0.00-0.10); IMMATURE GRAN PERCENT AUTO 1 % (0-1); LYMPHOCYTES ABSOLUTE AUTO 2.44 K/mm3 (0.84-5.20); LYMPHOCYTES PERCENT AUTO 39 % (21-46); MONOCYTES ABSOLUTE AUTO 0.47 K/mm3 (0.16-1.47); MONOCYTES PERCENT AUTO 8 % (4-13); Mean Corpuscular HGB 32.9 pg (26.0-34.0); Mean Corpuscular HGB Conc 35.1 g/dL (31.5-36.5); Mean Corpuscular Volume 94 fL (80-100); Mean Platelet Volume 10.7 fL (9.1-12.4); NEUTROPHILS ABSOLUTE AUTO 3.12 K/mm3 (1.96-9.15); NEUTROPHILS PERCENT AUTO 50 % (41-73); Platelet Count 218 K/mm3 (150-400); RDW Coefficient Variation 12.7 % (11.7-14.2); RDW Standard Deviation 43.6 fL (35.1-46.3); Red Blood Cell Count 4.29 M/mm3 (3.80-5.20); White Blood Cell Count 6.19 K/mm3 (4.00-11.30)
[2020-07-05 23:46] LABS: International Normalized Ratio 0.94; Prothrombin Time Results 10.1 Sec (9.7-11.5)
[2020-07-05 23:48] LABS: Alanine Aminotransfer (ALT/SGP 42 U/L (12-78); Albumin, Blood 3.6 g/dL (3.4-5.0); Alk Phos 146 U/L (50-136); Anion Gap 8 mmol/L (6-16); Aspartate Aminotrans (AST/SGOT 14 U/L (12-37); Bilirubin, Total 0.2 mg/dL (0.1-1.0); Blood Urea Nitrogen 11 mg/dL (8-24); Bun/Creatinine Ratio 16.5 (12.0-20.0); CO2, Blood 27 mmol/L (21-32); Calcium, Blood 8.9 mg/dL (8.5-10.1); Chloride, Blood 100 mmol/L (98-108); Creatinine, Blood 0.67 mg/dL (0.40-1.00); Globulin, Blood 3.6 g/dL (2.2-4.0); Glomerular Filtration Rate >60 (60-); Glucose, Blood 293 mg/dL (70-99); Potassium, Blood 3.6 mmol/L (3.5-5.5); Sodium, Blood 135 mmol/L (136-145); Total Protein, Blood 7.2 g/dL (6.4-8.2)
[2020-07-06] MEDS ORDERED: CLON.5 PO (00:40)
[2020-07-06] MEDS ORDERED: BASAGLAR K100 UNIT/5 SC (00:46)
[2020-07-06] MEDS ORDERED: BUPR150ER PO (00:56)
[2020-07-06 04:41] LABS: BASOPHILS ABSOLUTE AUTO 0.03 K/mm3 (0.00-0.23); BASOPHILS PERCENT AUTO 1 % (0-2); EOSINOPHILS ABSOLUTE AUTO 0.14 K/mm3 (0.00-0.68); EOSINOPHILS PERCENT AUTO 2 % (0-6); Hematocrit 38.9 % (33.0-51.0); Hemoglobin 13.5 g/dL (11.5-16.0); IMMATURE GRAN ABSOLUTE AUTO 0.03 K/mm3 (0.00-0.10); IMMATURE GRAN PERCENT AUTO 1 % (0-1); LYMPHOCYTES ABSOLUTE AUTO 2.41 K/mm3 (0.84-5.20); LYMPHOCYTES PERCENT AUTO 40 % (21-46); MONOCYTES ABSOLUTE AUTO 0.67 K/mm3 (0.16-1.47); MONOCYTES PERCENT AUTO 11 % (4-13); Mean Corpuscular HGB 32.9 pg (26.0-34.0); Mean Corpuscular HGB Conc 34.7 g/dL (31.5-36.5); Mean Corpuscular Volume 95 fL (80-100); Mean Platelet Volume 10.5 fL (9.1-12.4); NEUTROPHILS PERCENT AUTO 45 % (41-73); Platelet Count 195 K/mm3 (150-400); RDW Coefficient Variation 12.6 % (11.7-14.2); RDW Standard Deviation 43.6 fL (35.1-46.3); White Blood Cell Count 5.98 K/mm3 (4.00-11.30)
[2020-07-06 05:08] LABS: Anion Gap 7 mmol/L (6-16); Blood Urea Nitrogen 13 mg/dL (8-24); Bun/Creatinine Ratio 18.7 (12.0-20.0); CO2, Blood 29 mmol/L (21-32); Calcium, Blood 8.9 mg/dL (8.5-10.1); Chloride, Blood 101 mmol/L (98-108); Creatinine, Blood 0.69 mg/dL (0.40-1.00); Glomerular Filtration Rate >60 (60-); Glucose, Blood 281 mg/dL (70-99); Potassium, Blood 3.6 mmol/L (3.5-5.5); Sodium, Blood 137 mmol/L (136-145)
--- NOTE | 2020-07-06 07:59 | NUR ---
SHIFT SUMMARY PT A/OX4 WITH VSS. PAIN MANAGED PER EMAR AND REST. PT MEDICATED 2X FOR PAIN DURING THE NIGHT. AMBULATING WITH SBA. NPO EXCEPT ICE CHIPS PER ORDERS SINCE 0200 TODAY. PLAN FOR EVALUATION BY THIS MORNING. PT CURRENTLY RESTING IN BED WITH CALL LIGHT IN REACH. REPORT GIVEN TO DAY RN.
--- NOTE | 2020-07-06 09:58 | NUR ---
PT IS SLEEPY THIS AM BUT AWAKENS EASILY, CONT. TO REPORT PAIN ON INNER THIGH ALL THE WAY DOWN TO ANKLES, DENIES ANY NUMBNESS OR TINGLING, BILAT. PEDAL PULSES PRESENT W/ DOPPLER, APROX. 3CM ROUND FIRM REDNESS NOTED ON R LOWER PELVIC AREA, PT STATES AREA IS TENDER AND HAS BEEN THERE FOR 2 DAYS, NO DRAINAGE OR OPEN AREA NOTED, CONT. TO MONITOR FOR ANY CHANGES, PT IS NPO, WAITING FOR DR. HUNTLEY TO SEE PT.
--- NOTE | 2020-07-06 17:25 | NUR ---
ASSUMED PATIENT CARE. PATIENT TRANSFERED FROM HEART CENTER VIA BED. BILATERAL GROIN SITES AND L. RADIAL SHOW NO SIGNS OF DISCHARGE, NO HEMATOMA NOTED. PATIENT DENIES CHEST PAIN. WCTM.
--- NOTE | 2020-07-06 19:48 | NUR ---
NO ACUTE EVENTS THIS SHIFT. PATIENT VSS POST ANGIO, NO HEMATOMAS NOTED AT PUNCTURE SITES. PATIENT DENIED CHEST PAIN. PATIENT ENDORSED PAIN AT GROIN SITES. PATIENT ALERT AND ORIENTED.
[2020-07-07 04:19] LABS: Albumin, Blood 3.1 g/dL (3.4-5.0); Anion Gap 5 mmol/L (6-16); Blood Urea Nitrogen 12 mg/dL (8-24); Bun/Creatinine Ratio 14.6 (12.0-20.0); CO2, Blood 30 mmol/L (21-32); Calcium, Blood 8.5 mg/dL (8.5-10.1); Chloride, Blood 101 mmol/L (98-108); Creatinine, Blood 0.82 mg/dL (0.40-1.00); Glomerular Filtration Rate >60 (60-); Glucose, Blood 330 mg/dL (70-99); Phosphorus, Blood 3.5 mg/dL (2.5-4.9); Potassium, Blood 3.7 mmol/L (3.5-5.5); Sodium, Blood 136 mmol/L (136-145)
--- NOTE | 2020-07-07 05:55 | NUR ---
SHIFT SUMMARY PT A&O; CALLS APPROPRIATELY; VSS; DENIES CHEST PAIN; O2 SATS >93 ON RA; DENIES SOB; PT STATES FEELING IN FEET AND LEGS IS IMPROVED, STATES HER FEET ARE "GETTING WARMER"; STRONG PEDAL PULSES NOTED; NO HEMATOMA IN L RADIAL SITE NOTED; PT EDUCATED NOT TO USE LEFT ARM OR BEND WRIST; ARMBOARD IN PLACE; BILATERAL FEMORAL ACCESS C/D/I, NO HEMATOMAS NOTED; ONE ASSIST FOR BRP; PT WEAK AND TAKES HER TIME; SKID FREE SOCKS IN PLACE; NO DISTRESS NOTED; CALL LIGHT IN REACH; BED IN LOWEST POSITION; WILL CONTINUE TO MONITOR CLOSELY UNTIL HAND OFF TO DAY SHIFT RN.
[2020-07-07 12:14] LABS: Source, Urine Voided
[2020-07-07 12:30] LABS: Appearance, Urine Clear (Clear); Bilirubin, Urine Neg (Neg); Blood, Urine Neg (Neg); Color, Urine Yellow (P-Yellow); Glucose Qualitative, Urine 4+ (Neg); Ketones, Urine Neg (Neg); Leukocyte Esterase, Urine Neg (Neg); Nitrite, Urine Neg (Neg); Protein, Urine Neg (Neg); Specific Gravity, Urine 1.015 (1.003-1.022); Urobilinogen, Urine NORM (Normal)
[2020-07-07] MEDS ORDERED: CEPH500 PO (13:34)
[2020-07-07] MEDS ORDERED: Percocet 5-3251 EACH PO (13:35)
[2020-07-07] MEDS ORDERED: CLOP75 PO (13:35)
--- NOTE | 2020-07-07 14:39 | NUR ---
PATIENT PROVIDED DISCHARGE INFO REGARDING FOLLOW UP PLANS, MEDICTION INFO, REASONS TO RETURN TO THE HOSPITAL, AND POST-ANGIO SITE CARE. PATIENT VERBALIZED UNDERSTANDING. NO SIGNS OF ACUTE DISTRESS, NO DISCHARGE NOTED FROM PUNCTURE SITES AT BILATERAL GROIN AND L. WRIST.
== END 2020-07-07 14:40 | disposition home or self-care (01) ==
LOC: ER 16:40 → SURS 16:41 → MEDS 16:41 → SURS 07-06 00:20 → PCU 07-06 16:28
PROVIDERS: Emergency Medicine; Internal Medicine; ADMIT Internal Medicine
DX: E11.51 Type 2 diabetes mellitus with diabetic peripheral angiopathy without gangrene (principal); I70.0 Atherosclerosis of aorta; I70.213 Atherosclerosis of native arteries of extremities with intermittent claudication, bilateral legs; E11.65 Type 2 diabetes mellitus with hyperglycemia; I10 Essential (primary) hypertension; E78.5 Hyperlipidemia, unspecified; F32.9 Major depressive disorder, single episode, unspecified; F41.9 Anxiety disorder, unspecified; Z87.891 Personal history of nicotine dependence; Z79.82 Long term (current) use of aspirin; Z79.02 Long term (current) use of antithrombotics/antiplatelets; Z79.899 Other long term (current) drug therapy; Z79.4 Long term (current) use of insulin; Z88.5 Allergy status to narcotic agent; Z91.038 Other insect allergy status
CPT/HCPCS: 36415; 37220; 37221; 37246; 75625; 75716; 75774; 76937; 80048; 80053; 80069; 81003; 82947; 83605; 85025; 85610; 85730; 93925; 96372; 96374; 96375; 99152; 99153; 99285-25; A9270-GY; C1725; C1760; C1769; C1874; C1887; C1894; G0378; J1644; J2250; J2405; J3010; J7030; Q9967

== ENCOUNTER 2020-09-02 21:15 | Emergency (ER) | payer OTHER ==
[~2020-09-02] VITALS: Ht 175.3 cm; Wt 81.7 kg
[~2020-09-02 21:15] MED LIST changes: +BASAGLAR K100 UNIT/5 SC; +BUPR150ER PO; +CLOP75 PO
== END 2020-09-02 23:21 | disposition home or self-care (01) ==
LOC: ER 21:15
DX: M79.604 Pain in right leg (principal); E11.51 Type 2 diabetes mellitus with diabetic peripheral angiopathy without gangrene; Z79.899 Other long term (current) drug therapy; Z79.82 Long term (current) use of aspirin; Z79.4 Long term (current) use of insulin; Z88.5 Allergy status to narcotic agent; Z91.030 Bee allergy status; Z79.02 Long term (current) use of antithrombotics/antiplatelets; Z87.442 Personal history of urinary calculi
CPT/HCPCS: 93970; 96372; 99283-25; J1885

== ENCOUNTER 2020-09-09 20:37 | Observation (INO) | payer OTHER ==
[~2020-09-09] VITALS: Ht 175.3 cm; Wt 90.4 kg
[2020-09-09 21:00] LABS: BASOPHILS ABSOLUTE AUTO 0.04 K/mm3 (0.00-0.23); BASOPHILS PERCENT AUTO 1 % (0-2); EOSINOPHILS PERCENT AUTO 1 % (0-6); Hemoglobin 15.1 g/dL (11.5-16.0); IMMATURE GRAN ABSOLUTE AUTO 0.06 K/mm3 (0.00-0.10); IMMATURE GRAN PERCENT AUTO 1 % (0-1); LYMPHOCYTES ABSOLUTE AUTO 2.68 K/mm3 (0.84-5.20); LYMPHOCYTES PERCENT AUTO 33 % (21-46); MONOCYTES ABSOLUTE AUTO 0.59 K/mm3 (0.16-1.47); MONOCYTES PERCENT AUTO 7 % (4-13); Mean Corpuscular HGB 32.6 pg (26.0-34.0); Mean Corpuscular HGB Conc 34.3 g/dL (31.5-36.5); Mean Corpuscular Volume 95 fL (80-100); Mean Platelet Volume 10.5 fL (9.1-12.4); NEUTROPHILS PERCENT AUTO 57 % (41-73); Platelet Count 267 K/mm3 (150-400); RDW Coefficient Variation 13.2 % (11.7-14.2); RDW Standard Deviation 46.3 fL (35.1-46.3); Red Blood Cell Count 4.63 M/mm3 (3.80-5.20); White Blood Cell Count 8.07 K/mm3 (4.00-11.30)
[2020-09-09 21:21] LABS: Alanine Aminotransfer (ALT/SGP 39 U/L (12-78); Albumin, Blood 3.7 g/dL (3.4-5.0); Albumin/Globulin Ratio 1.1 (0.8-1.8); Alk Phos 128 U/L (50-136); Anion Gap 6 mmol/L (6-16); Aspartate Aminotrans (AST/SGOT 19 U/L (12-37); Bilirubin, Total 0.2 mg/dL (0.1-1.0); Blood Urea Nitrogen 13 mg/dL (8-24); Bun/Creatinine Ratio 17.5 (12.0-20.0); CO2, Blood 27 mmol/L (21-32); Calcium, Blood 9.5 mg/dL (8.5-10.1); Chloride, Blood 106 mmol/L (98-108); Creatinine, Blood 0.74 mg/dL (0.40-1.00); Globulin, Blood 3.5 g/dL (2.2-4.0); Glomerular Filtration Rate >60 (60-); Glucose, Blood 134 mg/dL (70-99); Potassium, Blood 3.6 mmol/L (3.5-5.5); Sodium, Blood 139 mmol/L (136-145); Total Protein, Blood 7.2 g/dL (6.4-8.2); Troponin I <0.015 ng/mL (0.000-0.040)
[2020-09-09] MEDS ORDERED: PANTOPRAZOLE SO40 M2 PO (21:43)
[2020-09-09] MEDS ORDERED: METFORMIN HCL500 M3 PO (21:43)
--- NOTE | 2020-09-10 00:57 | NUR ---
RECEIVED REPORT FROM YULIYA JAMISON RN. PT ARRIVED TO RM 340 VIA GURNEY. PT DROWSY, AND LETHARGIC. ABLE TO TRANSFER WITH TWO STAFF, PT C/O DIZZINESS. PT RESPONDS TO VERBAL STIMULI, AWAKENS TO NAME, FALLS BACK ASLEEP. CALL LT PLACE WITHIN REACH OF PT. WILL MONITOR AND PROVIDE CARE T/O SHIFT.
--- NOTE | 2020-09-10 02:16 | NUR ---
PT LETHARGIC AND HARD TO AROUSE. RESPONDED TO VERBAL STIMULI. ASSESSED BLOOD SUGAR, CBG 66. GAVE PT APPLE JUICE, CHEESE SLICES, A HALF OF SANDWICH AND A CARTON OF MILK. PT ABLE TO TAKE PO. PT ASKS WHAT WAS HER BLOOD SUGAR WHEN SHE HEARD 66 SHE SAID OH THAT'S LOW. PT STATES FOOD IS WHAT SHE NEEDED. PT MORE ALERT AND AWAKE. KNOWS SHE IS AT [facility]. CALL LT IN REACH.
--- NOTE | 2020-09-10 04:03 | NUR ---
SHIFT SUMMARY: ER ADMIT AT 0057. LETHARGIC UPON ARRIVAL TO RM 340. AWAKENS TO NAME AND ANSWERS APPROPRIATELY WHEN WAKENED. ASSESSED BLOOD GLUCOSE, CBG 66, PT ABLE TO TAKE IN PO SAFELY, CBG 153. PT UNSTEADY WHEN STANDING, SBA AT THIS TIME TO BSC. NO URINE REPORTED ON THIS SHIFT. APPETITE GOOD. NO CHOKING OR COUGHING NOTED. DRINKING WELL. PT STILL SLEEPY, STATES SHE HASN'T BEEN RESTING WELL AT HOME D/T SHE HASN'T BEEN FEELING WELL. REPORTS SOME UPPER GASTRIC PAIN WHICH 5/10 IS TOLERABLE, NO CP. WILL CONTINUE TO CARE FOR PT UNTIL SHIFT REPORT.
[2020-09-10 06:03] LABS: BASOPHILS ABSOLUTE AUTO 0.02 K/mm3 (0.00-0.23); BASOPHILS PERCENT AUTO 0 % (0-2); EOSINOPHILS ABSOLUTE AUTO 0.11 K/mm3 (0.00-0.68); EOSINOPHILS PERCENT AUTO 2 % (0-6); Hematocrit 39.2 % (33.0-51.0); Hemoglobin 13.4 g/dL (11.5-16.0); IMMATURE GRAN ABSOLUTE AUTO 0.04 K/mm3 (0.00-0.10); IMMATURE GRAN PERCENT AUTO 1 % (0-1); LYMPHOCYTES ABSOLUTE AUTO 2.31 K/mm3 (0.84-5.20); LYMPHOCYTES PERCENT AUTO 34 % (21-46); MONOCYTES ABSOLUTE AUTO 0.59 K/mm3 (0.16-1.47); MONOCYTES PERCENT AUTO 9 % (4-13); Mean Corpuscular HGB 33.2 pg (26.0-34.0); Mean Corpuscular HGB Conc 34.2 g/dL (31.5-36.5); Mean Corpuscular Volume 97 fL (80-100); Mean Platelet Volume 10.8 fL (9.1-12.4); NEUTROPHILS ABSOLUTE AUTO 3.73 K/mm3 (1.96-9.15); NEUTROPHILS PERCENT AUTO 55 % (41-73); Platelet Count 236 K/mm3 (150-400); RDW Coefficient Variation 13.6 % (11.7-14.2); RDW Standard Deviation 48.6 fL (35.1-46.3); Red Blood Cell Count 4.04 M/mm3 (3.80-5.20)
[2020-09-10 06:12] LABS: Alanine Aminotransfer (ALT/SGP 32 U/L (12-78); Albumin, Blood 3.3 g/dL (3.4-5.0); Albumin/Globulin Ratio 1.1 (0.8-1.8); Alk Phos 107 U/L (50-136); Anion Gap 5 mmol/L (6-16); Aspartate Aminotrans (AST/SGOT 16 U/L (12-37); Bilirubin, Total 0.3 mg/dL (0.1-1.0); Blood Urea Nitrogen 16 mg/dL (8-24); Bun/Creatinine Ratio 17.6 (12.0-20.0); CO2, Blood 32 mmol/L (21-32); Chloride, Blood 106 mmol/L (98-108); Creatinine, Blood 0.91 mg/dL (0.40-1.00); Globulin, Blood 3.1 g/dL (2.2-4.0); Glomerular Filtration Rate >60 (60-); Glucose, Blood 156 mg/dL (70-99); Potassium, Blood 3.6 mmol/L (3.5-5.5); Sodium, Blood 143 mmol/L (136-145); Total Protein, Blood 6.4 g/dL (6.4-8.2)
[2020-09-10 14:39] LABS: CPK Creatine Kinase 36 U/L (26-193)
--- NOTE | 2020-09-10 19:34 | NUR ---
SHIFT SUMMARY: NO ACUTE CHANGES TO REPORT THIS SHIFT. PT A&O; CALM AND COOPERATIVE WITH CARE; PT INDEPENDENT IN ROOM. MEDICATED FOR ABD/SUB-STERNAL PAIN PER EMAR. MEDICATED FOR NAUSEA PER EMAR. TELE IN PLACE; SR IN 80s PER MEDICAL DELIVERY TECHNICIAN. O2 @ 1L FOR COMFORT. CARDIAC STRESS TEST PLANNED. REPORT GIVEN TO ONCOMING RN.
--- NOTE | 2020-09-11 05:33 | NUR ---
PATIENT STATED WHEN SHE WOKE THIS AM THAT SHE HAS BEEN SLIGHTLY NAUSEATED THROUGHOUT THE NIGHT. ZOFRAN IV GIVEN. DENIES CHEST PAIN OR EPIGASTIC PAIN. INDEPENDENT IN ROOM, WITH 1-2 LITERS O2VIA NC. COUGHING UP THICK "NASTY" MUCUS, PT SWALLOWED IT. NO ACUTE CHANGES, CALL LIGHT IN REACH.
[2020-09-11 05:48] LABS: CHOL/HDL RATIO 5.6; Cholesterol 202 mg/dL (50-200); HDL Cholesterol 36 mg/dL (>39); LDL/HDL RATIO Unable to Calculate; Low Density Lipoprotein Chol Unable to Calculate mg/dL (0-110); Triglycerides 679 mg/dL (30-160); Very Low Density Lipoprot Chol Unable to Calculate mg/dL (6-32)
--- NOTE | 2020-09-11 17:03 | NUR ---
PT IS A/OX3, PLEASANT AND COOPERATIVE, THE PT IS UP IND IN HER ROOM, THE PT REPORTED PAIN IN HER LOW CHEST/UPPER ABD RADIATING TO HER BACK, WELL SA NAUSEA, THE PT WAS MEDICATED FOR PAIN AND NAUSEA T/O THE DAY, THIS AFTERNNO THE PT REPORTED THAT SHE FLT OFF THAT MAYBE SHE WASNT GETTING THE RIGHT MEDICATION, IT WAS NOTICED THAT THE PT NORMALY TAKE [place] SCHED BID, AND HADNT BEEN GIVEN ANY TODAY, PT NOW STATING THAT SHE FEELS BETTER AFTER RECIEVING THE [place], FAMILY I TO SHE THE PT CALL LIGHT IN REACH, PT APPEARS TO BE BREATHING EASILY AT REST, WILL CONTINUE TO MONITOR AND ASSESS FOR CHANGES
--- NOTE | 2020-09-12 06:32 | NUR ---
SHIFT SUMMARY PT HAS RESTED MOST OF THE NIGHT INDEPENDENT IN THE ROOM. SHE HAS HAD NO CHANGES ON TELE, AND NO REPORTS OF CHEST PAIN. PT DOES HAVE COMPLAINTS OF INTERMITTENT EPIGASTRIC PAIN THAT IS RELIEVED WITH FENTANYL. NO SOB, DENIES N/V. PT HAS BEEN INDEPENDENT AND AMBULATORY IN THE ROOM. VITALS ARE STABLE. SECOND PORTION OF STRESS TEST TO BE COMPLETE TODAY. PT NPO PER ORDERS. NO ACUTE CHANGES OVERNIGHT. BED IN LOWEST POSITION, CALL LIGHT WITHIN REACH
--- NOTE | 2020-09-12 15:02 | NUR ---
PT DISCHARGED THE PT VERBALIZED UNDERSTANDING OF THE DC INSTRUCTIONS, THE PT APPEARED TO BE BREATHING EASILY AT THE TIME OF DC, THE PTS PRESCRIPTION WAS FAXED TO [facility] REQUESTED, THE PT DECLINED WHEELCHAIR AND AMBULATED OUT ACCOMPANIED BY HER FRIEND, PT WAS REMINDED TO CALL HER PCP ON SUNDAY TO SCHEDULE A FOLLOW UP APPOINTMENT
== END 2020-09-12 14:30 | disposition home or self-care (01) ==
LOC: ER 20:37 → MEDS 20:38
PROVIDERS: Internal Medicine; Physician Assistant; ADMIT Internal Medicine
DX: R07.89 Other chest pain (principal); I10 Essential (primary) hypertension; E78.5 Hyperlipidemia, unspecified; E11.51 Type 2 diabetes mellitus with diabetic peripheral angiopathy without gangrene; G89.29 Other chronic pain; F32.9 Major depressive disorder, single episode, unspecified; F41.9 Anxiety disorder, unspecified; K85.90 Acute pancreatitis without necrosis or infection, unspecified; E66.9 Obesity, unspecified; Z23 Encounter for immunization; Z85.41 Personal history of malignant neoplasm of cervix uteri; Z79.4 Long term (current) use of insulin; Z88.5 Allergy status to narcotic agent; Z91.030 Bee allergy status; Z79.82 Long term (current) use of aspirin; Z79.02 Long term (current) use of antithrombotics/antiplatelets; Z79.899 Other long term (current) drug therapy; Z68.29 Body mass index [BMI] 29.0-29.9, adult
CPT/HCPCS: 36415; 71046; 71275; 74175; 78452; 80053; 80061; 82550; 82947; 83036; 83690; 84484; 85025; 93005; 93010; 93017; 94760; 96372; 96374-59; 96375; 96376; 99285-25; A9270-GY; A9500; G0378; J0280; J1650; J2405; J2785; J3010; J7040; Q9967

== ENCOUNTER 2020-10-04 14:00 | Emergency (ER) | payer OTHER ==
[~2020-10-04] VITALS: Ht 175.3 cm; Wt 90.7 kg
[~2020-10-04 14:00] MED LIST changes: +METFORMIN HCL500 M3 PO; +PANTOPRAZOLE SO40 M2 PO
[2020-10-04 14:31] LABS: BASOPHILS ABSOLUTE AUTO 0.02 K/mm3 (0.00-0.23); BASOPHILS PERCENT AUTO 0 % (0-2); EOSINOPHILS ABSOLUTE AUTO 0.05 K/mm3 (0.00-0.68); EOSINOPHILS PERCENT AUTO 1 % (0-6); Hematocrit 41.3 % (33.0-51.0); IMMATURE GRAN ABSOLUTE AUTO 0.05 K/mm3 (0.00-0.10); IMMATURE GRAN PERCENT AUTO 1 % (0-1); LYMPHOCYTES ABSOLUTE AUTO 1.73 K/mm3 (0.84-5.20); LYMPHOCYTES PERCENT AUTO 25 % (21-46); MONOCYTES ABSOLUTE AUTO 0.43 K/mm3 (0.16-1.47); MONOCYTES PERCENT AUTO 6 % (4-13); Mean Corpuscular HGB 32.6 pg (26.0-34.0); Mean Corpuscular HGB Conc 33.9 g/dL (31.5-36.5); Mean Corpuscular Volume 96 fL (80-100); Mean Platelet Volume 11.2 fL (9.1-12.4); NEUTROPHILS ABSOLUTE AUTO 4.53 K/mm3 (1.96-9.15); NEUTROPHILS PERCENT AUTO 67 % (41-73); Platelet Count 193 K/mm3 (150-400); RDW Coefficient Variation 13.2 % (11.7-14.2); RDW Standard Deviation 46.9 fL (35.1-46.3); White Blood Cell Count 6.81 K/mm3 (4.00-11.30)
[2020-10-04 15:01] LABS: Alanine Aminotransfer (ALT/SGP 42 U/L (12-78); Albumin, Blood 3.5 g/dL (3.4-5.0); Alk Phos 133 U/L (50-136); Anion Gap 9 mmol/L (6-16); Aspartate Aminotrans (AST/SGOT 20 U/L (12-37); Bilirubin, Total 0.3 mg/dL (0.1-1.0); Blood Urea Nitrogen 10 mg/dL (8-24); Bun/Creatinine Ratio 13.6 (12.0-20.0); CO2, Blood 23 mmol/L (21-32); Calcium, Blood 9.5 mg/dL (8.5-10.1); Chloride, Blood 103 mmol/L (98-108); Creatinine, Blood 0.73 mg/dL (0.40-1.00); Globulin, Blood 3.4 g/dL (2.2-4.0); Glomerular Filtration Rate >60 (60-); Glucose, Blood 419 mg/dL (70-99); Potassium, Blood 4.2 mmol/L (3.5-5.5); Sodium, Blood 135 mmol/L (136-145); Total Protein, Blood 6.9 g/dL (6.4-8.2)
[2020-10-04 16:27] LABS: Source, Urine Clean Catch
[2020-10-04 16:31] LABS: Appearance, Urine Clear (Clear); Bilirubin, Urine Neg (Neg); Blood, Urine Neg (Neg); Color, Urine Yellow (P-Yellow); Glucose Qualitative, Urine 4+ (Neg); Ketones, Urine Neg (Neg); Leukocyte Esterase, Urine Neg (Neg); Nitrite, Urine Neg (Neg); Protein, Urine Neg (Neg); Urobilinogen, Urine NORM (Normal)
[2020-10-04] MEDS ORDERED: ONDA4ODT MM (17:52)
[2020-10-04] MEDS ORDERED: IBUP600 PO (17:52)
[2020-10-07] MEDS ORDERED: TIZA4 (09:18)
== END 2020-10-04 18:14 | disposition home or self-care (01) ==
LOC: ER 14:00
PROVIDERS: Emergency Medicine; Physician Assistant
DX: R10.9 Unspecified abdominal pain (principal); E11.51 Type 2 diabetes mellitus with diabetic peripheral angiopathy without gangrene; Z79.82 Long term (current) use of aspirin; Z79.4 Long term (current) use of insulin; Z79.899 Other long term (current) drug therapy; Z91.030 Bee allergy status; Z88.5 Allergy status to narcotic agent; Z87.442 Personal history of urinary calculi; Z87.891 Personal history of nicotine dependence
CPT/HCPCS: 36415; 80053; 81003; 82010; 82947; 83690; 85025; 96361; 96374; 96375; 96376; 99284-25; J1885; J2405; J7030

== ENCOUNTER 2020-10-15 07:55 | Day surgery (SDC) | payer OTHER ==
[~2020-10-15] VITALS: Ht 205.7 cm; Wt 98.1 kg
[~2020-10-15 07:55] MED LIST changes: +ONDA4ODT MM; +TIZA4
--- NOTE | 2020-10-15 08:58 | NUR ---
10/15/20 0858 Ananya Alvarez V SURGEON AND ANESTHESIOLOGIST AWARE OF PT'S CBG. AT THIS TIME SURGEON IS WANTING TO CX AND RESCHEDULE PROCEDURE ONCE PT'S CBG IS "UNDER CONTROL". PT WAITING TO SPEAK WITH SURGEON.
== END 2020-10-15 09:42 | disposition home or self-care (01) ==
LOC: ORSCSDS 07:55
DX: G56.01 Carpal tunnel syndrome, right upper limb (principal); M67.40 Ganglion, unspecified site; M65.341 Trigger finger, right ring finger; Z53.9 Procedure and treatment not carried out, unspecified reason
CPT/HCPCS: 82947; J0171

== ENCOUNTER 2020-10-22 09:14 | Day surgery (SDC) | payer OTHER ==
[~2020-10-22] VITALS: Ht 175.3 cm; Wt 90.8 kg
--- NOTE | 2020-10-22 12:01 | NUR ---
10/22/20 1201 Merissa Camejo REPORT GIVEN TO [facility].NVP AT 1200. PT TOLERATING PO FLUIDS AND SNACKS WELL.
== END 2020-10-22 12:55 | disposition home or self-care (01) ==
LOC: ORSCSDS 09:14
PROVIDERS: Orthopaedic Surgery
PROC: 01N50ZZ Release Median Nerve, Open Approach (ICD-10-PCS; principal; 2020-10-22 10:45)
PROC: 0LN70ZZ Release Right Hand Tendon, Open Approach (ICD-10-PCS; principal; 2020-10-22 10:45)
PROC: 0LB50ZZ Excision of Right Lower Arm and Wrist Tendon, Open Approach (ICD-10-PCS; principal; 2020-10-22 10:45)
DX: M67.431 Ganglion, right wrist (principal); G56.01 Carpal tunnel syndrome, right upper limb; M65.341 Trigger finger, right ring finger; I10 Essential (primary) hypertension; E11.9 Type 2 diabetes mellitus without complications; J44.9 Chronic obstructive pulmonary disease, unspecified; E78.5 Hyperlipidemia, unspecified; K21.9 Gastro-esophageal reflux disease without esophagitis; Z79.899 Other long term (current) drug therapy; Z79.4 Long term (current) use of insulin; Z79.82 Long term (current) use of aspirin
CPT/HCPCS: 82947; 88304; A9270; J0171; J0690; J1100; J2250; J2405; J2704; J3010; J7120

== ENCOUNTER 2020-11-06 17:58 | Emergency (ER) | payer MEDICARE, OTHER ==
[~2020-11-06] VITALS: Ht 175.3 cm; Wt 90.7 kg
== END 2020-11-06 18:38 | disposition home or self-care (01) ==
LOC: ER 17:58
DX: Z48.01 Encounter for change or removal of surgical wound dressing (principal); E78.5 Hyperlipidemia, unspecified; E11.51 Type 2 diabetes mellitus with diabetic peripheral angiopathy without gangrene; F17.210 Nicotine dependence, cigarettes, uncomplicated; Z79.4 Long term (current) use of insulin; Z79.02 Long term (current) use of antithrombotics/antiplatelets; Z79.899 Other long term (current) drug therapy; Z91.030 Bee allergy status; Z88.5 Allergy status to narcotic agent; Z79.82 Long term (current) use of aspirin; Z87.442 Personal history of urinary calculi
CPT/HCPCS: 99282

== ENCOUNTER 2020-11-19 19:44 | Emergency (ER) | payer MEDICARE, OTHER ==
[~2020-11-19] VITALS: Ht 175.3 cm; Wt 90.7 kg
[2020-11-19 20:24] LABS: BASOPHILS ABSOLUTE AUTO 0.02 K/mm3 (0.00-0.23); BASOPHILS PERCENT AUTO 0 % (0-2); EOSINOPHILS ABSOLUTE AUTO 0.08 K/mm3 (0.00-0.68); EOSINOPHILS PERCENT AUTO 1 % (0-6); Hematocrit 39.3 % (33.0-51.0); Hemoglobin 13.5 g/dL (11.5-16.0); IMMATURE GRAN ABSOLUTE AUTO 0.03 K/mm3 (0.00-0.10); IMMATURE GRAN PERCENT AUTO 1 % (0-1); LYMPHOCYTES ABSOLUTE AUTO 2.11 K/mm3 (0.84-5.20); LYMPHOCYTES PERCENT AUTO 33 % (21-46); MONOCYTES ABSOLUTE AUTO 0.49 K/mm3 (0.16-1.47); MONOCYTES PERCENT AUTO 8 % (4-13); Mean Corpuscular HGB 32.3 pg (26.0-34.0); Mean Corpuscular HGB Conc 34.4 g/dL (31.5-36.5); Mean Corpuscular Volume 94 fL (80-100); NEUTROPHILS ABSOLUTE AUTO 3.71 K/mm3 (1.96-9.15); NEUTROPHILS PERCENT AUTO 58 % (41-73); Platelet Count 201 K/mm3 (150-400); RDW Coefficient Variation 13.1 % (11.7-14.2); RDW Standard Deviation 45.6 fL (35.1-46.3); Red Blood Cell Count 4.18 M/mm3 (3.80-5.20); White Blood Cell Count 6.44 K/mm3 (4.00-11.30)
[2020-11-19 20:48] LABS: Alanine Aminotransfer (ALT/SGP 45 U/L (12-78); Albumin, Blood 3.4 g/dL (3.4-5.0); Albumin/Globulin Ratio 1.1 (0.8-1.8); Alk Phos 138 U/L (50-136); Anion Gap 6 mmol/L (6-16); Aspartate Aminotrans (AST/SGOT 20 U/L (12-37); Bilirubin, Total 0.2 mg/dL (0.1-1.0); Blood Urea Nitrogen 9 mg/dL (8-24); Bun/Creatinine Ratio 11.5 (12.0-20.0); CO2, Blood 26 mmol/L (21-32); Calcium, Blood 8.8 mg/dL (8.5-10.1); Chloride, Blood 105 mmol/L (98-108); Creatinine, Blood 0.78 mg/dL (0.40-1.00); Glomerular Filtration Rate >60 (60-); Glucose, Blood 314 mg/dL (70-99); Potassium, Blood 3.6 mmol/L (3.5-5.5); Sodium, Blood 137 mmol/L (136-145); Total Protein, Blood 6.4 g/dL (6.4-8.2); Troponin I <0.015 ng/mL (0.000-0.040)
[2020-11-20] MEDS ORDERED: Protonix40 MG PO (00:25)
== END 2020-11-20 00:51 | disposition home or self-care (01) ==
LOC: ER 19:44
PROVIDERS: Physician Assistant
DX: R07.89 Other chest pain (principal); Z79.82 Long term (current) use of aspirin; Z79.4 Long term (current) use of insulin
CPT/HCPCS: 36415; 71046; 80053; 83690; 84484; 85025; 85379; 93005; 93010; 96374; 96375; 99285-25; A9270; C9113; J1885

== ENCOUNTER 2021-01-12 09:54 | Day surgery (SDC) | payer MEDICARE, OTHER ==
[~2021-01-12 09:54] MED LIST changes: +Protonix40 MG PO
--- NOTE | 2021-01-12 11:11 | NUR ---
1100- PT TAKEN TO RECOVERY IN RADIOOGY, PT DRANK WATER BOTTLE. VITALS STABLE. NO PT C/O. PT STABLE AMBULATORY ON FEET. Discharge instructions reviewed with patient. Patient verbalizes understanding. Copy given to patient to take home. AMBULATED OUT OF DEPARTMENT.
== END 2021-01-12 11:10 | disposition home or self-care (01) ==
LOC: ORSCMMR 09:54 → MHTC 09:54 → ORSCMMR 09:55 → CT 10:00 → ORSCMMR 11:10
DX: R07.89 Other chest pain (principal); E78.5 Hyperlipidemia, unspecified; E11.51 Type 2 diabetes mellitus with diabetic peripheral angiopathy without gangrene; J44.9 Chronic obstructive pulmonary disease, unspecified; K86.1 Other chronic pancreatitis; Z79.899 Other long term (current) drug therapy; Z79.82 Long term (current) use of aspirin; Z79.4 Long term (current) use of insulin
CPT/HCPCS: 75574; Q9967

== ENCOUNTER 2021-02-28 04:58 | Observation (INO) | payer MEDICARE, OTHER ==
[~2021-02-28] VITALS: Ht 172.7 cm; Wt 84.6 kg
[2021-02-28 07:57] LABS: Alanine Aminotransfer (ALT/SGP 37 U/L (12-78); Albumin, Blood 3.7 g/dL (3.4-5.0); Alk Phos 155 U/L (50-136); Anion Gap 6 mmol/L (6-16); Aspartate Aminotrans (AST/SGOT 19 U/L (12-37); Bilirubin, Total 0.2 mg/dL (0.1-1.0); Blood Urea Nitrogen 14 mg/dL (8-24); Bun/Creatinine Ratio 21.6 (12.0-20.0); CO2, Blood 29 mmol/L (21-32); Calcium, Blood 9.6 mg/dL (8.5-10.1); Chloride, Blood 100 mmol/L (98-108); Creatinine, Blood 0.65 mg/dL (0.40-1.00); Globulin, Blood 3.6 g/dL (2.2-4.0); Glomerular Filtration Rate >60 (60-); Glucose, Blood 284 mg/dL (70-99); Potassium, Blood 3.5 mmol/L (3.5-5.5); Sodium, Blood 135 mmol/L (136-145); Total Protein, Blood 7.3 g/dL (6.4-8.2)
[2021-02-28 08:04] LABS: BASOPHILS ABSOLUTE AUTO 0.03 K/mm3 (0.00-0.23); BASOPHILS PERCENT AUTO 0 % (0-2); EOSINOPHILS ABSOLUTE AUTO 0.05 K/mm3 (0.00-0.68); EOSINOPHILS PERCENT AUTO 1 % (0-6); Hemoglobin 14.9 g/dL (11.5-16.0); IMMATURE GRAN ABSOLUTE AUTO 0.05 K/mm3 (0.00-0.10); IMMATURE GRAN PERCENT AUTO 1 % (0-1); LYMPHOCYTES PERCENT AUTO 20 % (21-46); MONOCYTES PERCENT AUTO 7 % (4-13); Mean Corpuscular HGB Conc 35.5 g/dL (31.5-36.5); Mean Corpuscular Volume 93 fL (80-100); Mean Platelet Volume 11.3 fL (9.1-12.4); NEUTROPHILS ABSOLUTE AUTO 7.43 K/mm3 (1.96-9.15); NEUTROPHILS PERCENT AUTO 72 % (41-73); Platelet Count 196 K/mm3 (150-400); RDW Coefficient Variation 12.9 % (11.7-14.2); RDW Standard Deviation 43.9 fL (35.1-46.3); Red Blood Cell Count 4.52 M/mm3 (3.80-5.20); White Blood Cell Count 10.36 K/mm3 (4.00-11.30)
[2021-02-28 09:39] LABS: International Normalized Ratio 0.97; Prothrombin Time Results 10.5 Sec (9.7-11.5)
[2021-02-28] MEDS ORDERED: VENL25 PO (12:31)
--- NOTE | 2021-02-28 17:40 | NUR ---
RECEIVED PHONE REPORT FROM ERIK COLMENARES AT 1132; PT ARRIVED AT 1150 VIA STRETCHER ACCOMPANIED BY RN, MONITORING, HEPARIN IV INFUSION, AND NO OXYGEN THERAPY; PT ASSIGNED TO TELEMETRY; BED SCALE WEIGHT 83.9KG, HEIGHT REPORTED 5'9"; PT REPORTED PAIN IN POSTERIOR L THIGH; L FOOT COOLER THAN R FOOT BUT SAME COLOR; PT REPORTS SEVERE HUNGER; PAIN MEDICATED WITH FENTANYL AND ACETAMINOPHEN PER MAR; DR. HUNTLEY CONTACTED AT 1650; PLAN UPDATED FOR INTERVENTION 03/01 AFTER BREAKFAST; PT REPORTED MINIMAL PAIN RELIEF FROM FENTANYL AND REFUSED ADDITIONAL ADMINISTRATION; PT GIVEN DINNER; PT DENIES ADDITIONAL CONCERNS AT THIS TIME
[2021-03-01 02:06] LABS: Hematocrit 39.1 % (33.0-51.0); Hemoglobin 14.2 g/dL (11.5-16.0); Mean Corpuscular HGB Conc 36.3 g/dL (31.5-36.5); Mean Corpuscular Volume 91 fL (80-100); Mean Platelet Volume 11.3 fL (9.1-12.4); Platelet Count 144 K/mm3 (150-400); RDW Standard Deviation 43.4 fL (35.1-46.3); White Blood Cell Count 6.42 K/mm3 (4.00-11.30)
[2021-03-01 02:22] LABS: Anion Gap 6 mmol/L (6-16); Blood Urea Nitrogen 11 mg/dL (8-24); Bun/Creatinine Ratio 15.2 (12.0-20.0); CO2, Blood 26 mmol/L (21-32); Calcium, Blood 8.5 mg/dL (8.5-10.1); Chloride, Blood 103 mmol/L (98-108); Creatinine, Blood 0.72 mg/dL (0.40-1.00); Glomerular Filtration Rate >60 (60-); Glucose, Blood 299 mg/dL (70-99); Potassium, Blood 3.3 mmol/L (3.5-5.5); Sodium, Blood 135 mmol/L (136-145)
--- NOTE | 2021-03-01 04:28 | NUR ---
SHIFT SUMMARY PATIENT IS ALERT AND ORIENTED X4, HAS CONFUSION UPON WAKING, EASILY REORIENTED. PATIENT INSISTING ON GETTING UP, CONVINCED HER TO USE BSC DUE TO UNSTEADY GATE. 02 SATS 94% ON RA. CBG 356, COVERED PER EMAR, CALLED HOSPITALIST AND NO FURTHER ORDERS GIVEN. POSTERIOR TIBIAL PULSE FOUND WITH DOPPLER ON LLE. PAIN OUT OF PROPORTION, MEDICATED, SEE EMAR. CAP REFILL IN LLE <3 SECONDS AND EXTREMETY WARM TO THE TOUCH. VSS, NO ACUTE CHANGES. CALL LIGHT IN REACH, BED ALARM ON.
[2021-03-01 10:45] LABS: SARS-Cov-2 (COVID-19) PCR, MMC NEGATIVE (NEGATIVE)
[2021-03-01] MEDS ORDERED: METO25ER PO (11:48)
--- NOTE | 2021-03-01 13:32 | NUR ---
ANXIETY PT HAS GROWN INCREASINGLY ANXIOUS THIS AFTERNOON, PT REPORTS PAIN IN HER LEG, ANXIETY AND WANTING A "SMOKE." PT STATES SHE QUIT SMOKING APPROXIMATELY 7 MONTHS AGO IN [place] BUT WILL "SOMETIMES HAVE A SMOKE OR TWO WHEN FEELING STRESSED OR ANXIOUS." PT TAKES EFFEXOR AT HOME AND IT HAS BEEN ADDED TO HER EMAR AND ADMINISTERED THE FIRST DOSE TO HELP WITH ANXIETY. PT RESTING IN BED AT THIS TIME
--- NOTE | 2021-03-01 18:07 | NUR ---
SHIFT SUMMARY PT HAS BEEN DROWSY TODAY. WHEN AWAKE PT IS ANXIOUS AND PAINFUL. PT WAS MEDICATED PER EMAR. VS STABLE TODAY. LLE HAS BEEN COLDER THAN THE RIGHT, THE TIBIAL PULSE IS FOUND WITH DOPPLER. PT LEFT THIS EVENING FOR ANGIO WITH DR. HUNTLEY. PT HAS NOT YET RETURNED FROM ANGIO. PT WAS INDEPENDENT IN THE ROOM TODAY AND HEPARIN GTT RUNNING.
--- NOTE | 2021-03-02 00:23 | NUR ---
X3 SITES ALL THREE SITES HAVE REMAINED SOFT AND NONTENDER. NO BLEEDING NOTED. NO NUMBNESS/TINGLING IN EXTREMITIES THROUGH ALL SITE CHECKS. SITES INCLUDE R GROIN, L FOOD, AND L WRIST. WILL CONTINUE TO MONITOR. 15MIN, 30MIN, AND HOURLY CHECKS COMPLETED. WILL CONTINUE TO MONITOR
[2021-03-02 09:27] LABS: BASOPHILS ABSOLUTE AUTO 0.02 K/mm3 (0.00-0.23); BASOPHILS PERCENT AUTO 0 % (0-2); EOSINOPHILS ABSOLUTE AUTO 0.07 K/mm3 (0.00-0.68); EOSINOPHILS PERCENT AUTO 1 % (0-6); Hematocrit 38.9 % (33.0-51.0); Hemoglobin 13.6 g/dL (11.5-16.0); IMMATURE GRAN ABSOLUTE AUTO 0.04 K/mm3 (0.00-0.10); IMMATURE GRAN PERCENT AUTO 1 % (0-1); LYMPHOCYTES ABSOLUTE AUTO 1.25 K/mm3 (0.84-5.20); LYMPHOCYTES PERCENT AUTO 20 % (21-46); MONOCYTES ABSOLUTE AUTO 0.49 K/mm3 (0.16-1.47); MONOCYTES PERCENT AUTO 8 % (4-13); Mean Corpuscular HGB 32.6 pg (26.0-34.0); Mean Corpuscular Volume 93 fL (80-100); Mean Platelet Volume 11.2 fL (9.1-12.4); NEUTROPHILS ABSOLUTE AUTO 4.27 K/mm3 (1.96-9.15); NEUTROPHILS PERCENT AUTO 70 % (41-73); Platelet Count 137 K/mm3 (150-400); RDW Coefficient Variation 12.9 % (11.7-14.2); RDW Standard Deviation 44.3 fL (35.1-46.3); Red Blood Cell Count 4.17 M/mm3 (3.80-5.20); White Blood Cell Count 6.14 K/mm3 (4.00-11.30)
[2021-03-02] MEDS ORDERED: XARELTO2.5 M1 PO (12:23)
--- NOTE | 2021-03-02 16:59 | NUR ---
DISCHARGE ORDERS PLACED, HOWEVER PATIENT APPEARED DIAPHORETIC AND ENDORSED FEELING DIZZY THIS MORNING. THIS RN ASSITED PATIENT TO WALK IN HALLWAY, HOWEVER PATIENT WAS ONLY ABLE TO AMBULATE ABOUT 10 PACES OUTSIDE OF ROOM BEFORE NEEDING TO GO BACK TO BED DUE TO DIZZINESS. PATIENT WAS VISIBLY UNSTEADY AND SWAYING ON FEET. THIS RN NOTIFIED DR. HARDY, ORDERS TO HOLD DISCHARGE AND FOR PHYSICAL THERAPY. PT CAME AND WORKED WITH PATIENT, SEE PT NOTE. PATIENT TOLD THIS RN THAT HER SERVICE DOG WAS IN THE PATIENT'S PERSONAL VEHICLE, THIS RN SPOKE WITH CHARGE NURSE DORIE AND BLOOD BANK SUPERVISOR MENA, AGREED THAT SECURITY WOULD RETRIEVE THE SERVICE CANINE FROM THE PATIENT'S TRUCK, PATIENT'S SIGNIFICANT OTHER IS PLANNED TO [place] THE DOG TODAY BEFORE END OF VISITOR HOURS. NO OTHER ACUTE EVENTS THIS SHIFT, VSS AND PATIENT TOLERATING ON ROOM AIR. PATIENT REQUESTED NICOTINE PATCH, DR. HARDY NOTIFIED AND ORDERS GIVEN.
--- NOTE | 2021-03-02 17:06 | NUR ---
REPORT GIVEN TO KIKA VALENCIA ON MEDICAL.
--- NOTE | 2021-03-03 01:03 | NUR ---
50 year old Female with hx if lt le revascularization in Jun 2020 has cath removal of clot yesterday & she was a transfer from PCU 4 at 1948. She is diabetic on insulin & her BG was 270's. She asked for regular Pepsi versus diet. PT said she needed to go off floor but agreed she wouldn't. Significant other said he is unable to pick PT up today for DC until after 1729. PT's therapy dog was sent home with friends. PT medicated for pain lt le with 650 mg tylenol with helpful effect. LT LE warm & pink cap refill good.
[2021-03-03 04:50] LABS: BASOPHILS ABSOLUTE AUTO 0.02 K/mm3 (0.00-0.23); BASOPHILS PERCENT AUTO 0 % (0-2); EOSINOPHILS ABSOLUTE AUTO 0.07 K/mm3 (0.00-0.68); EOSINOPHILS PERCENT AUTO 1 % (0-6); Hematocrit 37.9 % (33.0-51.0); Hemoglobin 13.4 g/dL (11.5-16.0); IMMATURE GRAN ABSOLUTE AUTO 0.04 K/mm3 (0.00-0.10); IMMATURE GRAN PERCENT AUTO 1 % (0-1); LYMPHOCYTES ABSOLUTE AUTO 1.63 K/mm3 (0.84-5.20); LYMPHOCYTES PERCENT AUTO 29 % (21-46); MONOCYTES ABSOLUTE AUTO 0.41 K/mm3 (0.16-1.47); MONOCYTES PERCENT AUTO 7 % (4-13); Mean Corpuscular HGB 32.9 pg (26.0-34.0); Mean Corpuscular HGB Conc 35.4 g/dL (31.5-36.5); Mean Corpuscular Volume 93 fL (80-100); Mean Platelet Volume 11.1 fL (9.1-12.4); NEUTROPHILS ABSOLUTE AUTO 3.47 K/mm3 (1.96-9.15); NEUTROPHILS PERCENT AUTO 62 % (41-73); Platelet Count 156 K/mm3 (150-400); RDW Coefficient Variation 12.9 % (11.7-14.2); RDW Standard Deviation 44.5 fL (35.1-46.3); Red Blood Cell Count 4.07 M/mm3 (3.80-5.20); White Blood Cell Count 5.64 K/mm3 (4.00-11.30)
[2021-03-03 05:08] LABS: Anion Gap 3 mmol/L (6-16); Blood Urea Nitrogen 8 mg/dL (8-24); Bun/Creatinine Ratio 10.5 (12.0-20.0); CO2, Blood 32 mmol/L (21-32); Chloride, Blood 104 mmol/L (98-108); Creatinine, Blood 0.76 mg/dL (0.40-1.00); Glomerular Filtration Rate >60 (60-); Glucose, Blood 199 mg/dL (70-99); Potassium, Blood 3.2 mmol/L (3.5-5.5); Sodium, Blood 139 mmol/L (136-145)
--- NOTE | 2021-03-03 14:25 | NUR ---
DISCHARGE PT COMPLAINED OF TOP LEFT FOOT PAIN IN THE MORING AND WAS GIVEN APAP AND ICE PACK. THE PAIN CONTINUED TO BOTHER PT AND NOTIFIED DR OF PAIN. PT GIVEN ONE TIME DOSE OF TRAMADOL WELL GABAPENTIN BID. THE NEW GABAPENTIN MEDICATION PRESCRIPTION WAS CALLED IN TO PHARMACY. KIKA VALENCIA WENT OVER DC PACKET WITH PT AND TOOK OUT IV. PT WAS PICKED UP BY [facility].
== END 2021-03-03 14:11 | disposition home or self-care (01) ==
LOC: ER 04:58 → PCU 04:59 → ERHOLD 04:59 → PCU 11:56 → MEDS 03-02 19:38
PROVIDERS: Emergency Medicine; Internal Medicine; Radiology Diagnostic Radiology; ADMIT Internal Medicine
DX: E11.51 Type 2 diabetes mellitus with diabetic peripheral angiopathy without gangrene (principal); I70.223 Atherosclerosis of native arteries of extremities with rest pain, bilateral legs; E78.5 Hyperlipidemia, unspecified; R42 Dizziness and giddiness; Z95.820 Peripheral vascular angioplasty status with implants and grafts; Z87.891 Personal history of nicotine dependence; Z79.82 Long term (current) use of aspirin; Z79.4 Long term (current) use of insulin; Z79.01 Long term (current) use of anticoagulants; Z20.822 Contact with and (suspected) exposure to COVID-19
CPT/HCPCS: 36415; 37221; 37232; 37246; 75625; 75716; 75774; 76937; 80048; 80053; 82947; 85025; 85027; 85610; 85730; 93926; 94760; 96374; 96375; 96376; 97116; 97116-CQ; 97162; 97530; 97530-CQ; 99152; 99153; 99284-25; A9270; C1725; C1760; C1769; C1887; C1894; G0378; J1644; J2250; J2270; J2405; J2997; J3010; J7030; J7050; Q9967; U0004

== ENCOUNTER 2021-03-06 19:25 | Emergency (ER) | payer MEDICARE, OTHER ==
[~2021-03-06] VITALS: Ht 175.3 cm; Wt 86.2 kg
[~2021-03-06 19:25] MED LIST changes: +METO25ER PO; +VENL25 PO; +XARELTO2.5 M1 PO
== END 2021-03-06 20:47 | disposition home or self-care (01) ==
LOC: ER 19:25
DX: M79.642 Pain in left hand (principal); E11.9 Type 2 diabetes mellitus without complications; E78.5 Hyperlipidemia, unspecified; Z88.6 Allergy status to analgesic agent; Z91.038 Other insect allergy status; Z79.02 Long term (current) use of antithrombotics/antiplatelets; Z87.891 Personal history of nicotine dependence; Z79.4 Long term (current) use of insulin; Z79.899 Other long term (current) drug therapy
CPT/HCPCS: 99283

== ENCOUNTER → 2021-03-21 | Outpatient (CLI) | payer MEDICARE, OTHER | END | disposition home or self-care (01) | LOC: LAB SHORT 18:25 → LAB 18:25 | DX: L60.0 Ingrowing nail (principal) | CPT/HCPCS: 87070; 87075; 87077; 87186; 87205 ==

== ENCOUNTER 2021-04-01 08:33 | Day surgery (SDC) | payer MEDICARE, OTHER | END 2021-04-01 23:00 | disposition home or self-care (01) | LOC: WOUND 08:33 | DX: E11.621 Type 2 diabetes mellitus with foot ulcer (principal); L97.516 Non-pressure chronic ulcer of other part of right foot with bone involvement without evidence of necrosis; E11.59 Type 2 diabetes mellitus with other circulatory complications; E11.42 Type 2 diabetes mellitus with diabetic polyneuropathy; I73.9 Peripheral vascular disease, unspecified; Z88.5 Allergy status to narcotic agent | CPT/HCPCS: A9270; G0463 ==

== ENCOUNTER 2021-04-08 01:23 | Day surgery (SDC) | payer MEDICARE, OTHER | END 2021-04-08 22:48 | disposition home or self-care (01) | LOC: WOUND 01:23 | DX: E11.621 Type 2 diabetes mellitus with foot ulcer (principal); L97.516 Non-pressure chronic ulcer of other part of right foot with bone involvement without evidence of necrosis; E11.42 Type 2 diabetes mellitus with diabetic polyneuropathy; E11.51 Type 2 diabetes mellitus with diabetic peripheral angiopathy without gangrene; Z98.62 Peripheral vascular angioplasty status; Z79.4 Long term (current) use of insulin | CPT/HCPCS: A9270; G0463 ==

== ENCOUNTER 2021-04-21 02:13 | Day surgery (SDC) | payer MEDICARE, OTHER | END 2021-04-21 22:43 | disposition home or self-care (01) | LOC: WOUND 02:13 | DX: E11.621 Type 2 diabetes mellitus with foot ulcer (principal); L97.509 Non-pressure chronic ulcer of other part of unspecified foot with unspecified severity; E11.59 Type 2 diabetes mellitus with other circulatory complications; E11.42 Type 2 diabetes mellitus with diabetic polyneuropathy; E11.51 Type 2 diabetes mellitus with diabetic peripheral angiopathy without gangrene | CPT/HCPCS: A9270; G0463 ==

== ENCOUNTER 2021-05-08 00:02 | Emergency (ER) | payer MEDICARE, OTHER ==
[~2021-05-08] VITALS: Ht 175.3 cm; Wt 83.9 kg
[2021-05-08 00:41] LABS: BASOPHILS ABSOLUTE AUTO 0.05 K/mm3 (0.00-0.23); BASOPHILS PERCENT AUTO 1 % (0-2); EOSINOPHILS ABSOLUTE AUTO 0.08 K/mm3 (0.00-0.68); EOSINOPHILS PERCENT AUTO 1 % (0-6); Hematocrit 40.5 % (33.0-51.0); Hemoglobin 14.8 g/dL (11.5-16.0); Mean Corpuscular HGB 33.3 pg (26.0-34.0); Mean Corpuscular HGB Conc 36.5 g/dL (31.5-36.5); Mean Corpuscular Volume 91 fL (80-100); Mean Platelet Volume 11.1 fL (9.1-12.4); Platelet Count 241 K/mm3 (150-400); RDW Coefficient Variation 13.1 % (11.7-14.2); RDW Standard Deviation 43.4 fL (35.1-46.3); Red Blood Cell Count 4.44 M/mm3 (3.80-5.20); White Blood Cell Count 10.66 K/mm3 (4.00-11.30)
[2021-05-08 00:44] LABS: IMMATURE GRAN ABSOLUTE AUTO 0.06 K/mm3 (0.00-0.10); IMMATURE GRAN PERCENT AUTO 1 % (0-1); LYMPHOCYTES ABSOLUTE AUTO 3.27 K/mm3 (0.84-5.20); LYMPHOCYTES PERCENT AUTO 31 % (21-46); MONOCYTES ABSOLUTE AUTO 0.66 K/mm3 (0.16-1.47); MONOCYTES PERCENT AUTO 6 % (4-13); NEUTROPHILS ABSOLUTE AUTO 6.54 K/mm3 (1.96-9.15); NEUTROPHILS PERCENT AUTO 61 % (41-73)
[2021-05-08 00:53] LABS: Alanine Aminotransfer (ALT/SGP 39 U/L (12-78); Albumin, Blood 3.5 g/dL (3.4-5.0); Albumin/Globulin Ratio 0.9 (0.8-1.8); Alk Phos 155 U/L (50-136); Anion Gap 6 mmol/L (6-16); Aspartate Aminotrans (AST/SGOT 24 U/L (12-37); Bilirubin, Total 0.3 mg/dL (0.1-1.0); Blood Urea Nitrogen 10 mg/dL (8-24); Bun/Creatinine Ratio 12.8 (12.0-20.0); CO2, Blood 31 mmol/L (21-32); Chloride, Blood 98 mmol/L (98-108); Creatinine, Blood 0.78 mg/dL (0.40-1.00); Globulin, Blood 3.8 g/dL (2.2-4.0); Glomerular Filtration Rate >60 (60-); Glucose, Blood 279 mg/dL (70-99); Potassium, Blood 3.3 mmol/L (3.5-5.5); Sodium, Blood 135 mmol/L (136-145); Total Protein, Blood 7.3 g/dL (6.4-8.2)
[2021-05-08 01:32] LABS: Source, Urine Clean Catch
[2021-05-08 01:37] LABS: Bilirubin, Urine Neg (Neg); Blood, Urine 1+ (Neg); Glucose Qualitative, Urine 4+ (Neg); Ketones, Urine 1+ (Neg); Leukocyte Esterase, Urine Neg (Neg); Nitrite, Urine Neg (Neg); Protein, Urine 2+ (Neg); Specific Gravity, Urine 1.025 (1.003-1.022); Urobilinogen, Urine NORM (Normal)
[2021-05-08 01:48] LABS: Color, Urine Yellow (P-Yellow)
[2021-05-08 01:49] LABS: Amorphous Light (0-Heavy); Appearance, Urine Clear (Clear); Bacteria Not Seen /hpf; Mucus Light (0-Heavy); Red Blood Cells, Urine 0-2 /hpf (0-2); Squamous Epithelial Cells Rare /hpf (Few); White Blood Cells, Urine Not Seen /hpf (0-5)
[2021-05-08 03:12] LABS: Troponin I <0.015 ng/mL (0.000-0.040)
== END 2021-05-08 04:15 | disposition home or self-care (01) ==
LOC: ER 00:02
PROVIDERS: Emergency Medicine
DX: E11.9 Type 2 diabetes mellitus without complications (principal); F32.9 Major depressive disorder, single episode, unspecified; Z79.4 Long term (current) use of insulin; Z87.891 Personal history of nicotine dependence
CPT/HCPCS: 80053; 81001; 82947; 84484; 85025; 93005; 93010; 99284-25; J7120

== ENCOUNTER 2021-05-13 00:58 | Day surgery (SDC) | payer MEDICARE, OTHER | END 2021-05-13 23:59 | disposition home or self-care (01) | LOC: WOUND 00:58 | DX: E11.621 Type 2 diabetes mellitus with foot ulcer (principal); L97.509 Non-pressure chronic ulcer of other part of unspecified foot with unspecified severity; E11.59 Type 2 diabetes mellitus with other circulatory complications; E11.42 Type 2 diabetes mellitus with diabetic polyneuropathy; E11.51 Type 2 diabetes mellitus with diabetic peripheral angiopathy without gangrene | CPT/HCPCS: G0463 ==

== ENCOUNTER 2021-05-14 15:25 | Emergency (ER) | payer MEDICARE, OTHER ==
[~2021-05-14] VITALS: Ht 175.3 cm; Wt 88.5 kg
== END 2021-05-14 16:17 | disposition left against medical advice (07) ==
LOC: ER 15:25
DX: R07.9 Chest pain, unspecified (principal); F41.9 Anxiety disorder, unspecified; R73.9 Hyperglycemia, unspecified; Z79.899 Other long term (current) drug therapy; Z53.20 Procedure and treatment not carried out because of patient's decision for unspecified reasons
CPT/HCPCS: 99283

== ENCOUNTER 2021-05-28 23:23 | Emergency (ER) | payer MEDICARE, OTHER ==
[~2021-05-28] VITALS: Ht 175.3 cm; Wt 83.9 kg
== END 2021-05-29 01:08 | disposition home or self-care (01) ==
LOC: ER 23:23
DX: E11.51 Type 2 diabetes mellitus with diabetic peripheral angiopathy without gangrene (principal); I73.9 Peripheral vascular disease, unspecified; Z95.820 Peripheral vascular angioplasty status with implants and grafts; Z91.030 Bee allergy status; Z88.5 Allergy status to narcotic agent; Z79.899 Other long term (current) drug therapy; Z79.4 Long term (current) use of insulin; Z87.891 Personal history of nicotine dependence
CPT/HCPCS: 99282; A9270

== ENCOUNTER 2021-05-31 10:32 | Day surgery (SDC) | payer MEDICARE, OTHER ==
[~2021-05-31] VITALS: Ht 175.3 cm; Wt 83.6 kg
[2021-05-31] MEDS ORDERED: Aspir 8181 MG PO (13:00)
== END 2021-05-31 15:30 | disposition home or self-care (01) ==
LOC: MHTC 10:32
DX: E11.51 Type 2 diabetes mellitus with diabetic peripheral angiopathy without gangrene (principal); I70.223 Atherosclerosis of native arteries of extremities with rest pain, bilateral legs; F32.9 Major depressive disorder, single episode, unspecified; I50.9 Heart failure, unspecified; E78.5 Hyperlipidemia, unspecified; F17.210 Nicotine dependence, cigarettes, uncomplicated; J44.9 Chronic obstructive pulmonary disease, unspecified; Z88.5 Allergy status to narcotic agent
CPT/HCPCS: 76937; 99152; 99153; C1725; C1760; C1769; C1874; C1887; C1894; J1644; J2060; J2250; J2405; J3010; J7030; J7050; Q9967

== ENCOUNTER 2021-09-30 06:07 | Day surgery (SDC) | payer MEDICARE, OTHER ==
[~2021-09-30 06:07] MED LIST changes: +Aspir 8181 MG PO; +HUMALOG KW100 UNIT/1 SC; +XARELTO20 MG PO
--- NOTE | 2021-09-30 06:31 | NUR ---
INTO [facility] ADMISSION TO UNIT STARTED. Ambulatory in Day Surgery. Patient States Post-Procedure ride home has been arranged. Patient States Post-Procedure ride home has been arranged.
--- NOTE | 2021-09-30 08:09 | NUR ---
09/30/21 0809 Jerry Barger PATIENT DETERMINED TO BE ASA APPROPRIATE FOR PROPOFOL SEDATION PRIOR TO START OF PROCEDURE BY DR. CURIEL Bite Block Placed. 3-LEAD EKG REVIEWED WITH PHYSICIAN PRIOR TO START OF PROCEDURE. Patient to ENDO 1History, Chart, Medications and Allergies reviewed before start of procedure.MONITOR INTACT WITH CONTINUOUS PULSE OXIMETRY AND INTERMITTENT BP.
--- NOTE | 2021-09-30 08:32 | NUR ---
Discharge instructions reviewed with patient. Patient verbalizes understanding. Copy given to patient to take home. Patient States Post-Procedure ride home has been arranged. Discharged via wheelchair to private car for ride home.
== END 2021-09-30 23:58 | disposition home or self-care (01) ==
LOC: ORSCMMR 06:07 → ORD 07:30 → ORSCMMR 23:58
PROVIDERS: Surgery
PROC: 0DJ08ZZ Inspection of Upper Intestinal Tract, Via Natural or Artificial Opening Endoscopic (ICD-10-PCS; principal; 2021-09-30 07:30)
PROC: 0DBK8ZX Excision of Ascending Colon, Via Natural or Artificial Opening Endoscopic, Diagnostic (ICD-10-PCS; principal; 2021-09-30 07:30)
DX: R11.2 Nausea with vomiting, unspecified (principal); K21.9 Gastro-esophageal reflux disease without esophagitis; Z12.11 Encounter for screening for malignant neoplasm of colon; Z86.010 Personal history of colon polyps; Z80.0 Family history of malignant neoplasm of digestive organs; D12.2 Benign neoplasm of ascending colon; E11.9 Type 2 diabetes mellitus without complications; J44.9 Chronic obstructive pulmonary disease, unspecified; Z79.84 Long term (current) use of oral hypoglycemic drugs; Z79.899 Other long term (current) drug therapy
CPT/HCPCS: 82947; 88305; J2704; J7120

== ENCOUNTER 2021-10-21 18:49 | Emergency (ER) | payer MEDICARE, OTHER ==
[~2021-10-21] VITALS: Ht 175.3 cm; Wt 81.7 kg
[2021-10-21] MEDS ORDERED: ANUSOL-HC30 G1 PR (21:08)
[2021-10-21] MEDS ORDERED: FLUC150A PO (21:13)
== END 2021-10-21 21:38 | disposition home or self-care (01) ==
LOC: ER 18:49
DX: B37.3 Candidiasis of vulva and vagina (principal); Z88.5 Allergy status to narcotic agent; Z91.030 Bee allergy status; Z79.899 Other long term (current) drug therapy; Z79.4 Long term (current) use of insulin; E11.9 Type 2 diabetes mellitus without complications; Z87.891 Personal history of nicotine dependence
CPT/HCPCS: 99282; A9270

== ENCOUNTER → 2021-12-06 | Outpatient (CLI) | payer MEDICARE, OTHER ==
[~2021-12-06] MED LIST changes: +AMOCLA875 PO; +ANUSOL-HC30 G1 PR; +CEFD300 PO; +DOXY100 PO; +Diflucan150 MG PO; +FLUC150A PO; +IPRAT-ALBUT 0.5-3 ML INH; +POTA20PAC PO; +PRED20 PO
[2021-12-06 12:10] LABS: Source, Urine Clean Catch
[2021-12-06 13:24] LABS: Appearance, Urine Clear (Clear); Bilirubin, Urine Neg (Neg); Blood, Urine Neg (Neg); Color, Urine Yellow (P-Yellow); Glucose Qualitative, Urine 4+ (Neg); Ketones, Urine Neg (Neg); Leukocyte Esterase, Urine Neg (Neg); Nitrite, Urine Neg (Neg); Protein, Urine Neg (Neg); Specific Gravity, Urine 1.015 (1.003-1.022); Urobilinogen, Urine NORM (Normal)
== END ==
LOC: LAB SHORT 10:35
PROVIDERS: Student in an Organized Health Care Education/Training Program
DX: R20.0 Anesthesia of skin (principal); R29.818 Other symptoms and signs involving the nervous system; R32 Unspecified urinary incontinence
CPT/HCPCS: 81003

== ENCOUNTER 2022-03-01 20:51 | Emergency (ER) | payer MEDICARE, OTHER ==
[~2022-03-01] VITALS: Ht 175.3 cm; Wt 81.7 kg
[~2022-03-01 20:51] MED LIST changes: -AMOCLA875 PO; -DOXY100 PO; -IPRAT-ALBUT 0.5-3 ML INH; -POTA20PAC PO; -PRED20 PO
[2022-03-01 21:58] LABS: BASOPHILS ABSOLUTE AUTO 0.05 K/mm3 (0.00-0.23); BASOPHILS PERCENT AUTO 0 % (0-2); EOSINOPHILS PERCENT AUTO 2 % (0-6); Hematocrit 39.1 % (33.0-51.0); Hemoglobin 13.2 g/dL (11.5-16.0); IMMATURE GRAN ABSOLUTE AUTO 0.06 K/mm3 (0.00-0.10); IMMATURE GRAN PERCENT AUTO 1 % (0-1); LYMPHOCYTES ABSOLUTE AUTO 2.33 K/mm3 (0.84-5.20); LYMPHOCYTES PERCENT AUTO 21 % (21-46); MONOCYTES ABSOLUTE AUTO 0.87 K/mm3 (0.16-1.47); MONOCYTES PERCENT AUTO 8 % (4-13); Mean Corpuscular HGB 30.9 pg (26.0-34.0); Mean Corpuscular HGB Conc 33.8 g/dL (31.5-36.5); Mean Corpuscular Volume 92 fL (80-100); Mean Platelet Volume 9.9 fL (9.1-12.4); NEUTROPHILS ABSOLUTE AUTO 7.71 K/mm3 (1.96-9.15); NEUTROPHILS PERCENT AUTO 69 % (41-73); Platelet Count 258 K/mm3 (150-400); RDW Coefficient Variation 14.6 % (11.7-14.2); RDW Standard Deviation 49.1 fL (35.1-46.3); Red Blood Cell Count 4.27 M/mm3 (3.80-5.20); White Blood Cell Count 11.22 K/mm3 (4.00-11.30)
[2022-03-01 22:24] LABS: Albumin, Blood 3.3 g/dL (3.4-5.0); Albumin/Globulin Ratio 0.8 (0.8-1.8); Bilirubin, Total 0.2 mg/dL (0.1-1.0); Bun/Creatinine Ratio 9.2 (12.0-20.0); Calcium, Blood 9.3 mg/dL (8.5-10.1); Creatinine, Blood 0.76 mg/dL (0.40-1.00); Potassium, Blood 3.5 mmol/L (3.5-5.5); Total Protein, Blood 7.3 g/dL (6.4-8.2)
[2022-03-01 22:35] LABS: Influenza A, PCR NEGATIVE (NEGATIVE); Influenza B, PCR NEGATIVE (NEGATIVE); Resp Syncytial Virus, PCR NEGATIVE (NEGATIVE); SARS-Cov-2 (COVID-19) PCR, MMC NEGATIVE (NEGATIVE)
[2022-03-02] MEDS ORDERED: PRED20 PO (00:17)
[2022-03-02] MEDS ORDERED: IPRAT-ALBUT 0.5-3 ML INH (00:17)
[2022-03-02] MEDS ORDERED: DOXY100 PO (00:17)
== END 2022-03-02 00:33 | disposition home or self-care (01) ==
LOC: ER 20:51
PROVIDERS: Emergency Medicine
DX: J44.1 Chronic obstructive pulmonary disease with (acute) exacerbation (principal); R07.9 Chest pain, unspecified; E78.5 Hyperlipidemia, unspecified; E11.9 Type 2 diabetes mellitus without complications; F17.200 Nicotine dependence, unspecified, uncomplicated; Z79.899 Other long term (current) drug therapy; Z88.5 Allergy status to narcotic agent; Z91.030 Bee allergy status; Z79.4 Long term (current) use of insulin; Z79.84 Long term (current) use of oral hypoglycemic drugs; Z20.822 Contact with and (suspected) exposure to COVID-19
CPT/HCPCS: 0241U; 71045; 80053; 83880; 84484; 85025; 93005; 93010; 94640; 94664; 96374; 96375; 99285-25; A9270; J1170; J1885; J7512

== ENCOUNTER 2022-04-25 15:31 | Emergency (ER) | payer MEDICARE, OTHER ==
[~2022-04-25] VITALS: Ht 172.7 cm; Wt 83.0 kg
[~2022-04-25 15:31] MED LIST changes: +DOXY100 PO; +IPRAT-ALBUT 0.5-3 ML INH; +PRED20 PO
[2022-04-25 17:10] LABS: Source, Urine Clean Catch
[2022-04-25 17:14] LABS: BASOPHILS ABSOLUTE AUTO 0.02 K/mm3 (0.00-0.23); BASOPHILS PERCENT AUTO 0 % (0-2); EOSINOPHILS PERCENT AUTO 0 % (0-6); Hematocrit 37.5 % (33.0-51.0); Hemoglobin 13.4 g/dL (11.5-16.0); IMMATURE GRAN ABSOLUTE AUTO 0.06 K/mm3 (0.00-0.10); IMMATURE GRAN PERCENT AUTO 1 % (0-1); LYMPHOCYTES ABSOLUTE AUTO 1.31 K/mm3 (0.84-5.20); LYMPHOCYTES PERCENT AUTO 19 % (21-46); MONOCYTES ABSOLUTE AUTO 0.67 K/mm3 (0.16-1.47); MONOCYTES PERCENT AUTO 10 % (4-13); Mean Corpuscular HGB 31.8 pg (26.0-34.0); Mean Corpuscular HGB Conc 35.7 g/dL (31.5-36.5); Mean Corpuscular Volume 89 fL (80-100); Mean Platelet Volume 10.2 fL (9.1-12.4); NEUTROPHILS ABSOLUTE AUTO 4.91 K/mm3 (1.96-9.15); NEUTROPHILS PERCENT AUTO 70 % (41-73); Platelet Count 236 K/mm3 (150-400); RDW Coefficient Variation 13.6 % (11.7-14.2); RDW Standard Deviation 44.2 fL (35.1-46.3); Red Blood Cell Count 4.22 M/mm3 (3.80-5.20); White Blood Cell Count 6.97 K/mm3 (4.00-11.30)
[2022-04-25 17:17] LABS: Appearance, Urine Hazy (Clear); Bilirubin, Urine Neg (Neg); Blood, Urine 2+ (Neg); Color, Urine Yellow (P-Yellow); Glucose Qualitative, Urine Neg (Neg); Ketones, Urine Neg (Neg); Leukocyte Esterase, Urine 1+ (Neg); Nitrite, Urine Neg (Neg); Protein, Urine Neg (Neg); Specific Gravity, Urine 1.015 (1.003-1.022); Urobilinogen, Urine NORM (Normal)
[2022-04-25 17:31] LABS: Albumin, Blood 3.3 g/dL (3.4-5.0); Albumin/Globulin Ratio 0.8 (0.8-1.8); Bilirubin, Total 0.3 mg/dL (0.1-1.0); Bun/Creatinine Ratio 4.8 (12.0-20.0); Calcium, Blood 9.1 mg/dL (8.5-10.1); Creatinine, Blood 0.83 mg/dL (0.40-1.00); Globulin, Blood 4.1 g/dL (2.2-4.0); Potassium, Blood 2.8 mmol/L (3.5-5.5); Total Protein, Blood 7.4 g/dL (6.4-8.2)
[2022-04-25 17:33] LABS: Bacteria Many /hpf; Squamous Epithelial Cells Few /hpf (Few)
[2022-04-25] MEDS ORDERED: POTA20PAC PO (22:23)
== END 2022-04-25 23:00 | disposition home or self-care (01) ==
LOC: ER 15:31
PROVIDERS: Physician Assistant
DX: N13.6 Pyonephrosis (principal); E87.6 Hypokalemia; E11.51 Type 2 diabetes mellitus with diabetic peripheral angiopathy without gangrene; J44.9 Chronic obstructive pulmonary disease, unspecified; F17.200 Nicotine dependence, unspecified, uncomplicated
CPT/HCPCS: 36415; 80053; 81001; 85025; A9270; J0696; J1885; J3010; J7030

== ENCOUNTER 2022-05-23 18:18 | Emergency (ER) | payer MEDICARE, OTHER ==
[~2022-05-23] VITALS: Ht 175.3 cm; Wt 83.0 kg
[~2022-05-23 18:18] MED LIST changes: +POTA20PAC PO
[2022-05-23 20:10] LABS: Source, Urine Clean Catch
[2022-05-23 20:13] LABS: Appearance, Urine Cloudy (Clear); Bilirubin, Urine Neg (Neg); Blood, Urine 5+ (Neg); Color, Urine Yellow (P-Yellow); Glucose Qualitative, Urine 2+ (Neg); Ketones, Urine Neg (Neg); Leukocyte Esterase, Urine 3+ (Neg); Nitrite, Urine Neg (Neg); Protein, Urine 2+ (Neg); Urobilinogen, Urine NORM (Normal)
[2022-05-23 20:22] LABS: White Blood Cells, Urine TNTC /hpf (0-5)
[2022-05-23 20:23] LABS: Bacteria Mod /hpf; Squamous Epithelial Cells Few /hpf (Few)
[2022-05-23 21:29] LABS: BASOPHILS ABSOLUTE AUTO 0.04 K/mm3 (0.00-0.23); BASOPHILS PERCENT AUTO 1 % (0-2); EOSINOPHILS ABSOLUTE AUTO 0.18 K/mm3 (0.00-0.68); EOSINOPHILS PERCENT AUTO 3 % (0-6); Hematocrit 44.3 % (33.0-51.0); Hemoglobin 15.8 g/dL (11.5-16.0); IMMATURE GRAN ABSOLUTE AUTO 0.03 K/mm3 (0.00-0.10); IMMATURE GRAN PERCENT AUTO 0 % (0-1); LYMPHOCYTES ABSOLUTE AUTO 2.15 K/mm3 (0.84-5.20); LYMPHOCYTES PERCENT AUTO 30 % (21-46); MONOCYTES ABSOLUTE AUTO 0.56 K/mm3 (0.16-1.47); MONOCYTES PERCENT AUTO 8 % (4-13); Mean Corpuscular HGB 31.9 pg (26.0-34.0); Mean Corpuscular HGB Conc 35.7 g/dL (31.5-36.5); Mean Corpuscular Volume 89 fL (80-100); Mean Platelet Volume 10.4 fL (9.1-12.4); NEUTROPHILS PERCENT AUTO 59 % (41-73); Platelet Count 221 K/mm3 (150-400); RDW Coefficient Variation 13.4 % (11.7-14.2); RDW Standard Deviation 44.2 fL (35.1-46.3); Red Blood Cell Count 4.96 M/mm3 (3.80-5.20); White Blood Cell Count 7.16 K/mm3 (4.00-11.30)
[2022-05-23 21:45] LABS: Albumin, Blood 3.1 g/dL (3.4-5.0); Albumin/Globulin Ratio 0.6 (0.8-1.8); Bilirubin, Total 0.3 mg/dL (0.1-1.0); Bun/Creatinine Ratio 10.5 (12.0-20.0); Calcium, Blood 9.5 mg/dL (8.5-10.1); Creatinine, Blood 0.76 mg/dL (0.40-1.00); Globulin, Blood 4.8 g/dL (2.2-4.0); Potassium, Blood 3.6 mmol/L (3.5-5.5); Total Protein, Blood 7.9 g/dL (6.4-8.2)
[2022-05-23 22:11] LABS: Source, Urine Nephrostomy
[2022-05-23 22:13] LABS: Bilirubin, Urine Neg (Neg); Blood, Urine 5+ (Neg); Glucose Qualitative, Urine Neg (Neg); Ketones, Urine Neg (Neg); Leukocyte Esterase, Urine 3+ (Neg); Nitrite, Urine Neg (Neg); Protein, Urine 4+ (Neg); Specific Gravity, Urine 1.015 (1.003-1.022); Urobilinogen, Urine NORM (Normal)
[2022-05-23 22:14] LABS: Appearance, Urine Cloudy (Clear); Color, Urine Yellow (P-Yellow)
[2022-05-23 22:21] LABS: Amorphous Light (0-Heavy); Bacteria Mod /hpf; Red Blood Cells, Urine TNTC /hpf (0-2); Squamous Epithelial Cells Not Seen /hpf (Few)
[2022-05-23] MEDS ORDERED: CEPH500 PO (22:52)
== END 2022-05-23 23:25 | disposition home or self-care (01) ==
LOC: ER 18:18
PROVIDERS: Physician Assistant; Student in an Organized Health Care Education/Training Program
DX: N39.0 Urinary tract infection, site not specified (principal); E11.9 Type 2 diabetes mellitus without complications; J44.9 Chronic obstructive pulmonary disease, unspecified; E78.5 Hyperlipidemia, unspecified; F17.210 Nicotine dependence, cigarettes, uncomplicated; Z79.899 Other long term (current) drug therapy; Z79.52 Long term (current) use of systemic steroids; Z79.4 Long term (current) use of insulin; Z79.01 Long term (current) use of anticoagulants; Z88.5 Allergy status to narcotic agent; Z91.038 Other insect allergy status; Z93.6 Other artificial openings of urinary tract status
CPT/HCPCS: 36415; 51798; 80053; 81001; 85025; J0696; J7030

== ENCOUNTER 2022-07-10 19:18 | Emergency (ER) | payer MEDICARE, OTHER ==
[~2022-07-10] VITALS: Ht 175.3 cm; Wt 83.9 kg
[~2022-07-10 19:18] MED LIST changes: +AMOCLA875 PO
== END 2022-07-10 22:32 | disposition home or self-care (01) ==
LOC: ER 19:18
DX: T83.022A Displacement of nephrostomy catheter, initial encounter (principal); E11.51 Type 2 diabetes mellitus with diabetic peripheral angiopathy without gangrene; I73.9 Peripheral vascular disease, unspecified; E78.5 Hyperlipidemia, unspecified; J44.9 Chronic obstructive pulmonary disease, unspecified; F17.210 Nicotine dependence, cigarettes, uncomplicated; Z91.030 Bee allergy status; Z88.5 Allergy status to narcotic agent; Z79.899 Other long term (current) drug therapy; Z79.02 Long term (current) use of antithrombotics/antiplatelets; Z79.01 Long term (current) use of anticoagulants; Z79.4 Long term (current) use of insulin
CPT/HCPCS: 99282; A9270

== ENCOUNTER 2022-10-11 06:27 | Day surgery (SDC) | payer MEDICARE, OTHER ==
[~2022-10-11] VITALS: Ht 175.3 cm; Wt 89.6 kg
[~2022-10-11 06:27] MED LIST changes: +ACET325 PO; +BASAGLAR K100 UNIT/3 SC; -BASAGLAR K100 UNIT/5 SC; -BUPR150ER PO; +BUPROPION XL150 M1 PO; +CLON1 PO; +EPIPEN0.3 MG/0.1 IM; +LEVOFLOXACIN750 MG PO; +PROTONIX40 M2 PO; +TAMSULOSIN HCL0.4 M1 PO; -VENL25 PO; +VISBIOME 112.51 EACH PO; +XARELTO2.5 MG PO; -XARELTO20 MG PO
[2022-10-11] MEDS ORDERED: XARELTO20 MG PO (07:19)
[2022-10-11] MEDS ORDERED: ATOR10 PO (07:25)
== END 2022-10-11 08:58 | disposition home or self-care (01) ==
LOC: ORSCSDS 06:27
PROVIDERS: Orthopaedic Surgery
PROC: 0LN70ZZ Release Right Hand Tendon, Open Approach (ICD-10-PCS; principal; 2022-10-11 08:15)
DX: M65.331 Trigger finger, right middle finger (principal); J44.9 Chronic obstructive pulmonary disease, unspecified; I50.9 Heart failure, unspecified; E11.9 Type 2 diabetes mellitus without complications; E78.5 Hyperlipidemia, unspecified; F43.10 Post-traumatic stress disorder, unspecified; F17.210 Nicotine dependence, cigarettes, uncomplicated; Z79.4 Long term (current) use of insulin; Z79.01 Long term (current) use of anticoagulants; Z79.84 Long term (current) use of oral hypoglycemic drugs; Z79.899 Other long term (current) drug therapy
CPT/HCPCS: 82947; J2001; J2250

== ENCOUNTER 2022-11-16 10:33 | Emergency (ER) | payer MEDICARE, OTHER ==
[~2022-11-16] VITALS: Ht 175.3 cm; Wt 88.0 kg
[~2022-11-16 10:33] MED LIST changes: +ATOR10 PO; +OXYC5 PO
[2022-11-16 13:32] LABS: Source, Urine Nephrostomy
[2022-11-16 13:49] LABS: Bilirubin, Urine Neg (Neg); Blood, Urine 5+ (Neg); Glucose Qualitative, Urine Neg (Neg); Ketones, Urine Neg (Neg); Leukocyte Esterase, Urine Neg (Neg); Nitrite, Urine Neg (Neg); Protein, Urine 2+ (Neg); Urobilinogen, Urine NORM (Normal)
[2022-11-16 13:56] LABS: Color, Urine Yellow (P-Yellow)
[2022-11-16 13:57] LABS: Appearance, Urine Hazy (Clear)
[2022-11-16 13:58] LABS: Bacteria Few /hpf; Red Blood Cells, Urine TNTC /hpf (0-2); Squamous Epithelial Cells Few /hpf (Few); White Blood Cells, Urine 0-2 /hpf (0-5)
[2022-11-16 16:19] LABS: BASOPHILS ABSOLUTE AUTO 0.03 K/mm3 (0.00-0.23); BASOPHILS PERCENT AUTO 1 % (0-2); EOSINOPHILS PERCENT AUTO 3 % (0-6); Hematocrit 36.9 % (33.0-51.0); Hemoglobin 12.7 g/dL (11.5-16.0); IMMATURE GRAN ABSOLUTE AUTO 0.02 K/mm3 (0.00-0.10); IMMATURE GRAN PERCENT AUTO 0 % (0-1); LYMPHOCYTES ABSOLUTE AUTO 1.59 K/mm3 (0.84-5.20); LYMPHOCYTES PERCENT AUTO 26 % (21-46); MONOCYTES ABSOLUTE AUTO 0.41 K/mm3 (0.16-1.47); MONOCYTES PERCENT AUTO 7 % (4-13); Mean Corpuscular HGB 31.6 pg (26.0-34.0); Mean Corpuscular HGB Conc 34.4 g/dL (31.5-36.5); Mean Corpuscular Volume 92 fL (80-100); Mean Platelet Volume 10.3 fL (9.1-12.4); NEUTROPHILS ABSOLUTE AUTO 3.87 K/mm3 (1.96-9.15); NEUTROPHILS PERCENT AUTO 63 % (41-73); Platelet Count 242 K/mm3 (150-400); RDW Coefficient Variation 14.3 % (11.7-14.2); RDW Standard Deviation 48.9 fL (35.1-46.3); Red Blood Cell Count 4.02 M/mm3 (3.80-5.20); White Blood Cell Count 6.12 K/mm3 (4.00-11.30)
[2022-11-16 16:40] LABS: Albumin, Blood 3.3 g/dL (3.4-5.0); Albumin/Globulin Ratio 0.9 (0.8-1.8); Bilirubin, Total 0.1 mg/dL (0.1-1.0); Calcium, Blood 8.7 mg/dL (8.5-10.1); Globulin, Blood 3.7 g/dL (2.2-4.0); Potassium, Blood 3.3 mmol/L (3.5-5.5)
== END 2022-11-16 17:47 | disposition home or self-care (01) ==
LOC: ER 10:33
PROVIDERS: Emergency Medicine; Student in an Organized Health Care Education/Training Program
DX: Z43.6 Encounter for attention to other artificial openings of urinary tract (principal); N13.30 Unspecified hydronephrosis; Z88.5 Allergy status to narcotic agent; Z91.030 Bee allergy status; Z79.899 Other long term (current) drug therapy; Z79.4 Long term (current) use of insulin; Z79.82 Long term (current) use of aspirin; Z79.84 Long term (current) use of oral hypoglycemic drugs
CPT/HCPCS: 36415; 74018; 76770; 80053; 81001; 85025; 96372; 99284-25; J1885; J2405

== ENCOUNTER 2023-03-04 17:48 | Emergency (ER) | payer MEDICARE, OTHER ==
[~2023-03-04] VITALS: Ht 175.3 cm; Wt 83.9 kg
[2023-03-04 18:37] LABS: BASOPHILS ABSOLUTE AUTO 0.03 K/mm3 (0.00-0.23); BASOPHILS PERCENT AUTO 0 % (0-2); EOSINOPHILS ABSOLUTE AUTO 0.23 K/mm3 (0.00-0.68); EOSINOPHILS PERCENT AUTO 3 % (0-6); Hematocrit 35.6 % (33.0-51.0); Hemoglobin 12.5 g/dL (11.5-16.0); IMMATURE GRAN ABSOLUTE AUTO 0.05 K/mm3 (0.00-0.10); IMMATURE GRAN PERCENT AUTO 1 % (0-1); LYMPHOCYTES ABSOLUTE AUTO 1.93 K/mm3 (0.84-5.20); LYMPHOCYTES PERCENT AUTO 22 % (21-46); MONOCYTES ABSOLUTE AUTO 0.62 K/mm3 (0.16-1.47); MONOCYTES PERCENT AUTO 7 % (4-13); Mean Corpuscular HGB 31.6 pg (26.0-34.0); Mean Corpuscular HGB Conc 35.1 g/dL (31.5-36.5); Mean Corpuscular Volume 90 fL (80-100); Mean Platelet Volume 10.3 fL (9.1-12.4); NEUTROPHILS ABSOLUTE AUTO 6.03 K/mm3 (1.96-9.15); NEUTROPHILS PERCENT AUTO 68 % (41-73); Platelet Count 290 K/mm3 (150-400); RDW Coefficient Variation 14.3 % (11.7-14.2); Red Blood Cell Count 3.95 M/mm3 (3.80-5.20); White Blood Cell Count 8.89 K/mm3 (4.00-11.30)
[2023-03-04 18:41] LABS: Source, Urine Nephrostomy
[2023-03-04 18:47] LABS: Appearance, Urine Cloudy (Clear); Bilirubin, Urine Neg (Neg); Blood, Urine 5+ (Neg); Glucose Qualitative, Urine Neg (Neg); Ketones, Urine Neg (Neg); Leukocyte Esterase, Urine 3+ (Neg); Nitrite, Urine Neg (Neg); Protein, Urine 3+ (Neg); Urobilinogen, Urine NORM (Normal)
[2023-03-04 18:56] LABS: Albumin, Blood 3.4 g/dL (3.4-5.0); Albumin/Globulin Ratio 0.8 (0.8-1.8); Bilirubin, Total 0.3 mg/dL (0.1-1.0); Bun/Creatinine Ratio 7.4 (12.0-20.0); Calcium, Blood 8.5 mg/dL (8.5-10.1); Creatinine, Blood 0.81 mg/dL (0.40-1.00); Potassium, Blood 2.9 mmol/L (3.5-5.5); Total Protein, Blood 7.4 g/dL (6.4-8.2)
[2023-03-04 19:03] LABS: Color, Urine Pale Yellow (P-Yellow)
[2023-03-04 19:04] LABS: White Blood Cells, Urine 50-100 /hpf (0-5)
[2023-03-04 19:05] LABS: Bacteria Many /hpf; Squamous Epithelial Cells Not Seen /hpf (Few)
[2023-03-04] MEDS ORDERED: HYDMOR4 PO (23:03)
[2023-03-04] MEDS ORDERED: CEFP200 PO (23:03)
[2023-03-04] MEDS ORDERED: ONDA4 PO (23:03)
[2023-03-04 23:05] VITALS: BP 140/72
== END 2023-03-04 23:10 | disposition home or self-care (01) ==
LOC: ER 17:48
PROVIDERS: Emergency Medicine; Student in an Organized Health Care Education/Training Program
DX: N12 Tubulo-interstitial nephritis, not specified as acute or chronic (principal); E11.9 Type 2 diabetes mellitus without complications; J44.9 Chronic obstructive pulmonary disease, unspecified; F17.210 Nicotine dependence, cigarettes, uncomplicated; Z91.030 Bee allergy status; Z88.5 Allergy status to narcotic agent; Z79.4 Long term (current) use of insulin; Z79.899 Other long term (current) drug therapy; Z79.02 Long term (current) use of antithrombotics/antiplatelets
CPT/HCPCS: 74177; 80053; 81001; 83605; 85025; A9270; J0696; J1170; J2405; J3480; J7030; Q9967

== ENCOUNTER 2023-03-09 15:13 | Inpatient (IN) | payer MEDICARE, OTHER ==
[~2023-03-09] VITALS: Ht 175.3 cm; Wt 88.6 kg
[~2023-03-09 15:13] MED LIST changes: +CEFP200 PO; +HYDMOR4 PO
[2023-03-09 16:01] LABS: BASOPHILS ABSOLUTE AUTO 0.05 K/mm3 (0.00-0.23); BASOPHILS PERCENT AUTO 1 % (0-2); EOSINOPHILS PERCENT AUTO 4 % (0-6); Hematocrit 37.5 % (33.0-51.0); Hemoglobin 12.8 g/dL (11.5-16.0); IMMATURE GRAN ABSOLUTE AUTO 0.03 K/mm3 (0.00-0.10); IMMATURE GRAN PERCENT AUTO 0 % (0-1); LYMPHOCYTES ABSOLUTE AUTO 1.84 K/mm3 (0.84-5.20); LYMPHOCYTES PERCENT AUTO 23 % (21-46); MONOCYTES ABSOLUTE AUTO 0.43 K/mm3 (0.16-1.47); MONOCYTES PERCENT AUTO 6 % (4-13); Mean Corpuscular HGB 31.6 pg (26.0-34.0); Mean Corpuscular HGB Conc 34.1 g/dL (31.5-36.5); Mean Corpuscular Volume 93 fL (80-100); Mean Platelet Volume 10.3 fL (9.1-12.4); NEUTROPHILS ABSOLUTE AUTO 5.22 K/mm3 (1.96-9.15); NEUTROPHILS PERCENT AUTO 66 % (41-73); Platelet Count 298 K/mm3 (150-400); RDW Coefficient Variation 14.6 % (11.7-14.2); RDW Standard Deviation 49.7 fL (35.1-46.3); Red Blood Cell Count 4.05 M/mm3 (3.80-5.20); White Blood Cell Count 7.87 K/mm3 (4.00-11.30)
[2023-03-09 16:19] LABS: Albumin/Globulin Ratio 0.8 (0.8-1.8); Bilirubin, Total 0.1 mg/dL (0.1-1.0); Calcium, Blood 8.9 mg/dL (8.5-10.1); Creatinine, Blood 0.88 mg/dL (0.40-1.00); Globulin, Blood 3.7 g/dL (2.2-4.0); Potassium, Blood 3.5 mmol/L (3.5-5.5); Total Protein, Blood 6.7 g/dL (6.4-8.2)
[2023-03-09 19:44] LABS: Source, Urine Nephrostomy
[2023-03-09 19:48] LABS: Bilirubin, Urine Neg (Neg); Blood, Urine 5+ (Neg); Glucose Qualitative, Urine 3+ (Neg); Ketones, Urine 1+ (Neg); Leukocyte Esterase, Urine 3+ (Neg); Nitrite, Urine Pos (Neg); Protein, Urine 3+ (Neg); Specific Gravity, Urine 1.015 (1.003-1.022); Urobilinogen, Urine NORM (Normal)
[2023-03-09 20:07] LABS: Appearance, Urine Hazy (Clear); Color, Urine Yellow (P-Yellow)
[2023-03-09 20:09] LABS: White Blood Cells, Urine 25-50 /hpf (0-5)
[2023-03-09 20:10] LABS: Bacteria Many /hpf; Hyaline Casts 0-2 /lpf (0-2); Squamous Epithelial Cells Mod /hpf (Few); Transitional Epithelial Cells Rare /hpf (0-Rare)
[2023-03-10 05:05] LABS: BASOPHILS ABSOLUTE AUTO 0.04 K/mm3 (0.00-0.23); BASOPHILS PERCENT AUTO 1 % (0-2); EOSINOPHILS ABSOLUTE AUTO 0.33 K/mm3 (0.00-0.68); EOSINOPHILS PERCENT AUTO 5 % (0-6); Hematocrit 35.8 % (33.0-51.0); Hemoglobin 11.9 g/dL (11.5-16.0); IMMATURE GRAN ABSOLUTE AUTO 0.02 K/mm3 (0.00-0.10); IMMATURE GRAN PERCENT AUTO 0 % (0-1); LYMPHOCYTES ABSOLUTE AUTO 2.02 K/mm3 (0.84-5.20); LYMPHOCYTES PERCENT AUTO 33 % (21-46); MONOCYTES ABSOLUTE AUTO 0.45 K/mm3 (0.16-1.47); MONOCYTES PERCENT AUTO 7 % (4-13); Mean Corpuscular HGB 31.2 pg (26.0-34.0); Mean Corpuscular HGB Conc 33.2 g/dL (31.5-36.5); Mean Corpuscular Volume 94 fL (80-100); Mean Platelet Volume 9.9 fL (9.1-12.4); NEUTROPHILS ABSOLUTE AUTO 3.25 K/mm3 (1.96-9.15); NEUTROPHILS PERCENT AUTO 53 % (41-73); Platelet Count 258 K/mm3 (150-400); RDW Coefficient Variation 14.6 % (11.7-14.2); RDW Standard Deviation 50.5 fL (35.1-46.3); Red Blood Cell Count 3.82 M/mm3 (3.80-5.20); White Blood Cell Count 6.11 K/mm3 (4.00-11.30)
--- NOTE | 2023-03-10 05:26 | NUR ---
SHIFT SUMMARY: JOSEFINA IS A NEW ADMIT OVERNIGHT. SHE IS A&OX4. VSS, NO ACUTE EVENTS OVERNIGHT, INDEPENDENT IN THE ROOM. SHE HAS A RIGHT NEPHROSTOMY TUBE DRAINING TO LEG BAG WHICH SHE EMPTIES INDEPENDENTLY. SHE REPORTS MINIMAL PAIN CONTROL WITH 25 MCG OF FENTANYL. THIS RN WAS NOT ABLE TO VERIFY PT'S HOME MEDICATIONS. REQUESTED PT TO PROVIDE A LIST OF HOME MEDICATIONS TO RECONCILE. PT IS LYING IN BED WITH THE CALL LIGHT IN REACH. WCTM UNTIL REPORT IS GIVEN TO DAY SHIFT RN.
[2023-03-10 05:33] LABS: Albumin, Blood 2.8 g/dL (3.4-5.0); Albumin/Globulin Ratio 0.8 (0.8-1.8); Bilirubin, Total 0.2 mg/dL (0.1-1.0); Bun/Creatinine Ratio 7.6 (12.0-20.0); Calcium, Blood 8.4 mg/dL (8.5-10.1); Creatinine, Blood 0.92 mg/dL (0.40-1.00); Globulin, Blood 3.3 g/dL (2.2-4.0); Magnesium, Blood 1.6 mg/dL (1.6-2.4); Potassium, Blood 3.3 mmol/L (3.5-5.5); Total Protein, Blood 6.1 g/dL (6.4-8.2)
[2023-03-10 07:31] VITALS: BP 129/54
[2023-03-10] MEDS ORDERED: HUMALOG KW100 UNIT/1 SQ (09:43)
[2023-03-10] MEDS ORDERED: ATOR20 PO (09:43)
[2023-03-10] MEDS ORDERED: BUPR150ER PO (09:48)
[2023-03-10] MEDS ORDERED: HYDMOR4 PO (09:49)
[2023-03-10] MEDS ORDERED: CLON1 PO (09:49)
[2023-03-10] MEDS ORDERED: CLOP75 PO (09:49)
[2023-03-10] MEDS ORDERED: INSULANI SC (09:50)
[2023-03-10] MEDS ORDERED: METO25ER PO (09:51)
[2023-03-10] MEDS ORDERED: OLAN10 PO (09:51)
[2023-03-10] MEDS ORDERED: METF500C PO (09:51)
[2023-03-10] MEDS ORDERED: ONDA4 PO (09:52)
[2023-03-10] MEDS ORDERED: PANT40 PO (09:52)
[2023-03-10] MEDS ORDERED: PRAZ2 PO (09:57)
[2023-03-10] MEDS ORDERED: TAMS.4ER PO (09:58)
[2023-03-10] MEDS ORDERED: TRULICITY0.75 MG/01 SQ (09:58)
[2023-03-10] MEDS ORDERED: VENL150ER PO (09:58)
[2023-03-10] MEDS ORDERED: XARELTO2.5 MG PO (09:59)
[2023-03-10 14:56] VITALS: BP 136/62
--- NOTE | 2023-03-10 16:35 | NUR ---
DAYSHIFT SUMMARY Patient doing well this shift, c/o moderate pain r/t nephrostomy. Home medication of Dilaudid PO administred, effective for pain. Patient reports visceral pain located at the site of "nephrostomy, and radiating to ABD & if she moves wrong, the pain radiates up her spine". Nephrostomy site WNL, skin intact, old drainage on dressing, but no active exudate observed. Urine yellow, clear. Normal saline bolus ordered x1. No reports of N/V this shift, tolerated PO intake. Patient went on a walk downstairs, & when she returned she reported this activity was a mistake & worsened her pain. Vitals stable, afebrile. Humalog SSI for ac coverage. Pending Urine cultures. Will continue plan of care.
[2023-03-10 20:23] VITALS: BP 139/62
[2023-03-11 05:20] VITALS: BP 127/60
[2023-03-11 05:47] LABS: Hematocrit 34.2 % (33.0-51.0); Hemoglobin 11.8 g/dL (11.5-16.0); Mean Corpuscular HGB 32.1 pg (26.0-34.0); Mean Corpuscular HGB Conc 34.5 g/dL (31.5-36.5); Mean Corpuscular Volume 93 fL (80-100); Mean Platelet Volume 10.6 fL (9.1-12.4); Platelet Count 259 K/mm3 (150-400); RDW Coefficient Variation 14.5 % (11.7-14.2); RDW Standard Deviation 50.2 fL (35.1-46.3); Red Blood Cell Count 3.68 M/mm3 (3.80-5.20); White Blood Cell Count 5.91 K/mm3 (4.00-11.30)
[2023-03-11 06:26] LABS: Bun/Creatinine Ratio 10.4 (12.0-20.0); Calcium, Blood 8.8 mg/dL (8.5-10.1); Creatinine, Blood 0.96 mg/dL (0.40-1.00); Potassium, Blood 3.3 mmol/L (3.5-5.5)
[2023-03-11 07:12] VITALS: BP 139/59
[2023-03-11 14:43] VITALS: BP 124/76
--- NOTE | 2023-03-11 17:33 | NUR ---
SHIFT SUMMARY PATIENT ADMITTED WITH PYLONEPHRITIS. PATIENT HAS A R NEPHROSTOMY TUBE WITH TENDERNESS AND PAIN AROUND SITE. PATIENT SLEPT MOST OF THE DAY. AROUSED EASILY BUT QUICKLY DRIFTING TO SLEEP. NEPHROSTOMY TUBE DRAINING YELLOW URINE. PATIENT AMBULATED THIS AFTERNOON IN THE HALLS. AFTER AMBULATING, PATIENT REQUESTING PAIN MEDS. NO REDNESS OR SWELLING NOTED AROUND NEPHROSTOMY TUBE. PATIENT RECIEVING IV ANTIBIOTICS FOR INFECTION.
[2023-03-11] MEDS ORDERED: ALBU2.5V5 INH (18:40)
[2023-03-11 19:29] VITALS: BP 148/71
[2023-03-11] MEDS ORDERED: CLON1 PO (21:30)
[2023-03-11] MEDS ORDERED: GLIP10 PO (21:33)
[2023-03-11] MEDS ORDERED: GABA300 PO (21:34)
[2023-03-11] MEDS ORDERED: CEFP200 PO (21:34)
[2023-03-12 04:45] VITALS: BP 135/73
[2023-03-12 05:04] LABS: Potassium, Blood 3.2 mmol/L (3.5-5.5)
[2023-03-12 07:34] VITALS: BP 137/59
--- NOTE | 2023-03-12 07:50 | NUR ---
PT WALKED OUTSIDE TO SMOKE DURING THE NIGHT. SECURITY WAS CALLED AND PT REMINDED THAT THIS IS A SMOKE FREE CAMPUS. REFUSES NICOTINE GUM AND NICOTINE PATCH BUT AGREES TO STOP SMOKING. NON COMPLIANT WITH DIABETIC DIET, FREQUENTLY DRINKS SODAS. PT IS PLEASANT, VSS, INDEPENDENT IN ROOM.
[2023-03-12] MEDS ORDERED: AMOX500 PO (10:32)
--- NOTE | 2023-03-12 12:00 | NUR ---
DISCHARGE SUMMARY PATIENT IS ALERT AND ORIENTED. PATIENT HAS HAD NO ACUTE EVENTS THIS SHIFT. VITAL SIGNS REVIEWED. PATIENT HAS BEEN PLEASENT AND COOPERATIVE THIS SHIFT. PATIENT IS BEING DISCHARGED HOME, PATIENTS FAMILY IS TRANSPORTING PATIENT HOME. PATIENT HAS HAD NO COMPLAINTS OF PAIN, NAUSEA, SOB OR VOMITTING THIS SHIFT.
== END 2023-03-12 11:56 | disposition home or self-care (01) | DRG 699 ==
LOC: ER 15:13 → MEDS 15:14
PROVIDERS: Internal Medicine; Physician Assistant; Student in an Organized Health Care Education/Training Program; ADMIT Student in an Organized Health Care Education/Training Program
DX: T83.512A Infection and inflammatory reaction due to nephrostomy catheter, initial encounter (principal); N12 Tubulo-interstitial nephritis, not specified as acute or chronic; T83.84XA Pain due to genitourinary prosthetic devices, implants and grafts, initial encounter; J44.9 Chronic obstructive pulmonary disease, unspecified; E11.69 Type 2 diabetes mellitus with other specified complication; E66.9 Obesity, unspecified; I10 Essential (primary) hypertension; E11.51 Type 2 diabetes mellitus with diabetic peripheral angiopathy without gangrene; F17.210 Nicotine dependence, cigarettes, uncomplicated; Y83.8 Other surgical procedures as the cause of abnormal reaction of the patient, or of later complication, without mention of misadventure at the time of the procedure; G89.29 Other chronic pain; E87.6 Hypokalemia; E78.5 Hyperlipidemia, unspecified; F32.A Depression, unspecified; F11.90 Opioid use, unspecified, uncomplicated; B95.2 Enterococcus as the cause of diseases classified elsewhere; Z88.8 Allergy status to other drugs, medicaments and biological substances; Z91.030 Bee allergy status; Z79.02 Long term (current) use of antithrombotics/antiplatelets; Z79.4 Long term (current) use of insulin; Z79.51 Long term (current) use of inhaled steroids; Z87.19 Personal history of other diseases of the digestive system; Z85.41 Personal history of malignant neoplasm of cervix uteri; Z90.710 Acquired absence of both cervix and uterus; Z90.49 Acquired absence of other specified parts of digestive tract; Z90.89 Acquired absence of other organs; Z98.51 Tubal ligation status; Z90.721 Acquired absence of ovaries, unilateral; Z98.890 Other specified postprocedural states; Z93.6 Other artificial openings of urinary tract status; Z95.820 Peripheral vascular angioplasty status with implants and grafts; Z68.27 Body mass index [BMI] 27.0-27.9, adult; Z71.6 Tobacco abuse counseling; Z79.84 Long term (current) use of oral hypoglycemic drugs; Z79.899 Other long term (current) drug therapy
CPT/HCPCS: 36415; 74177; 80048; 80053; 81001; 82947; 83735; 85025; 85027; 87077; 87086; 87186; 94760; 96361; 96365-59; 96372; 96375; 96376; 99285-25; A9270; G0378; J0696; J0744; J1170; J1644; J1815; J1885; J2405; J3010; J7040; Q9967

== ENCOUNTER 2023-05-02 06:39 | Day surgery (SDC) | payer MEDICARE, OTHER ==
[~2023-05-02] VITALS: Ht 175.3 cm; Wt 90.7 kg
[~2023-05-02 06:39] MED LIST changes: +ALBU2.5V5 INH; +AMOX500 PO; +BUPR150ER PO; +EPIPEN0.3 MG/0.3 IM; +HUMALOG JU100 UNIT/2; +HUMALOG KW100 UNIT/1 SQ; +INSULANI SC; +INSULIN AS100 UNIT/8; +PANT40 PO; +PRAZ2 PO; +TAMS.4ER PO; +TRULICITY0.75 MG/01 SQ
--- NOTE | 2023-05-02 08:40 | NUR ---
PT BACK TO RECOVERY ROOM VIA BED AFTER PROCEDURE. AWAKE AND ALERT, DID NOT RECEIVE PROCEDURAL SEDATION DURING PROCEDURE. VSS, CALL LIGHT IN REACH.
[2023-05-02 08:45] VITALS: BP 168/80
--- NOTE | 2023-05-02 09:02 | NUR ---
PT REQUESTING TO BE DC'D HOME IMMEDIATELY DUE TO DAUGHTER BEING IN LABOR. PT GIVEN DC INSTRUCTIONS AND FOLLOW UP INFO, VERBALIZED UNDERSTANDING. PO POTASSIUM GIVEN PER ORDERS PRIOR TO PT DC.
== END 2023-05-02 09:36 | disposition home or self-care (01) ==
LOC: MHTC 06:39
DX: Z43.6 Encounter for attention to other artificial openings of urinary tract (principal); N13.5 Crossing vessel and stricture of ureter without hydronephrosis; R07.89 Other chest pain; I50.9 Heart failure, unspecified; J44.9 Chronic obstructive pulmonary disease, unspecified; E78.5 Hyperlipidemia, unspecified; E11.51 Type 2 diabetes mellitus with diabetic peripheral angiopathy without gangrene; Z88.5 Allergy status to narcotic agent
CPT/HCPCS: 50435; A9270; C1729; C1769; J7040; J7050; Q9967

== ENCOUNTER 2023-05-11 14:06 | Emergency (ER) | payer MEDICARE, OTHER ==
[~2023-05-11] VITALS: Ht 175.3 cm; Wt 83.9 kg
[2023-05-11 15:32] LABS: BASOPHILS ABSOLUTE AUTO 0.05 K/mm3 (0.00-0.23); BASOPHILS PERCENT AUTO 0 % (0-2); EOSINOPHILS ABSOLUTE AUTO 0.15 K/mm3 (0.00-0.68); EOSINOPHILS PERCENT AUTO 1 % (0-6); Hematocrit 40.8 % (33.0-51.0); Hemoglobin 14.4 g/dL (11.5-16.0); IMMATURE GRAN ABSOLUTE AUTO 0.05 K/mm3 (0.00-0.10); IMMATURE GRAN PERCENT AUTO 0 % (0-1); LYMPHOCYTES ABSOLUTE AUTO 2.21 K/mm3 (0.84-5.20); LYMPHOCYTES PERCENT AUTO 18 % (21-46); MONOCYTES ABSOLUTE AUTO 0.87 K/mm3 (0.16-1.47); MONOCYTES PERCENT AUTO 7 % (4-13); Mean Corpuscular HGB 31.9 pg (26.0-34.0); Mean Corpuscular HGB Conc 35.3 g/dL (31.5-36.5); Mean Corpuscular Volume 91 fL (80-100); NEUTROPHILS ABSOLUTE AUTO 9.22 K/mm3 (1.96-9.15); NEUTROPHILS PERCENT AUTO 74 % (41-73); Platelet Count 373 K/mm3 (150-400); RDW Coefficient Variation 14.3 % (11.7-14.2); RDW Standard Deviation 47.6 fL (35.1-46.3); Red Blood Cell Count 4.51 M/mm3 (3.80-5.20); White Blood Cell Count 12.55 K/mm3 (4.00-11.30)
[2023-05-11 15:43] LABS: Source, Urine Clean Catch
[2023-05-11 15:53] LABS: Appearance, Urine Cloudy (Clear); Bilirubin, Urine Neg (Neg); Blood, Urine 5+ (Neg); Color, Urine Amber (P-Yellow); Glucose Qualitative, Urine Neg (Neg); Ketones, Urine 1+ (Neg); Leukocyte Esterase, Urine 3+ (Neg); Nitrite, Urine Neg (Neg); Protein, Urine 4+ (Neg); Urobilinogen, Urine NORM (Normal)
[2023-05-11 15:55] LABS: Albumin, Blood 3.7 g/dL (3.4-5.0); Albumin/Globulin Ratio 0.9 (0.8-1.8); Bilirubin, Total 0.4 mg/dL (0.1-1.0); Bun/Creatinine Ratio 8.1 (12.0-20.0); Calcium, Blood 9.3 mg/dL (8.5-10.1); Creatinine, Blood 0.99 mg/dL (0.40-1.00); Globulin, Blood 4.2 g/dL (2.2-4.0); Potassium, Blood 2.7 mmol/L (3.5-5.5); Total Protein, Blood 7.9 g/dL (6.4-8.2)
[2023-05-11 16:01] VITALS: BP 122/71
[2023-05-11 16:01] LABS: Bacteria Many /hpf; Red Blood Cells, Urine TNTC /hpf (0-2); Squamous Epithelial Cells Few /hpf (Few); WBC Cast 0-2 /lpf (0); White Blood Cells, Urine TNTC /hpf (0-5)
[2023-05-11] MEDS ORDERED: CEPH500 PO (17:40)
[2023-05-11] MEDS ORDERED: K-Dur20 MEQ PO (17:40)
== END 2023-05-11 18:34 | disposition home or self-care (01) ==
LOC: ER 14:06
PROVIDERS: Student in an Organized Health Care Education/Training Program
DX: N39.0 Urinary tract infection, site not specified (principal); E87.6 Hypokalemia; Z88.5 Allergy status to narcotic agent; Z91.030 Bee allergy status; Z79.51 Long term (current) use of inhaled steroids; Z79.02 Long term (current) use of antithrombotics/antiplatelets; Z79.01 Long term (current) use of anticoagulants; Z79.1 Long term (current) use of non-steroidal anti-inflammatories (NSAID); Z79.4 Long term (current) use of insulin; Z79.899 Other long term (current) drug therapy; E11.9 Type 2 diabetes mellitus without complications; E78.5 Hyperlipidemia, unspecified; Z87.442 Personal history of urinary calculi; F17.200 Nicotine dependence, unspecified, uncomplicated
CPT/HCPCS: 80053; 81001; 83690; 85025; 87077; 87086; 87186; 96365; 96375; 96376; 99283-25; A9270; J0696; J1885; J2405; J7030

== ENCOUNTER 2023-05-22 12:50 | Emergency (ER) | payer MEDICARE, OTHER ==
[~2023-05-22] VITALS: Ht 177.8 cm; Wt 83.9 kg
[~2023-05-22 12:50] MED LIST changes: +K-Dur20 MEQ PO
[2023-05-22 13:37] LABS: BASOPHILS ABSOLUTE AUTO 0.04 K/mm3 (0.00-0.23); BASOPHILS PERCENT AUTO 1 % (0-2); EOSINOPHILS ABSOLUTE AUTO 0.16 K/mm3 (0.00-0.68); EOSINOPHILS PERCENT AUTO 2 % (0-6); Hematocrit 35.2 % (33.0-51.0); Hemoglobin 12.4 g/dL (11.5-16.0); IMMATURE GRAN ABSOLUTE AUTO 0.03 K/mm3 (0.00-0.10); IMMATURE GRAN PERCENT AUTO 0 % (0-1); LYMPHOCYTES ABSOLUTE AUTO 2.24 K/mm3 (0.84-5.20); LYMPHOCYTES PERCENT AUTO 28 % (21-46); MONOCYTES ABSOLUTE AUTO 0.53 K/mm3 (0.16-1.47); MONOCYTES PERCENT AUTO 7 % (4-13); Mean Corpuscular HGB 32.3 pg (26.0-34.0); Mean Corpuscular HGB Conc 35.2 g/dL (31.5-36.5); Mean Corpuscular Volume 92 fL (80-100); Mean Platelet Volume 10.2 fL (9.1-12.4); NEUTROPHILS ABSOLUTE AUTO 4.96 K/mm3 (1.96-9.15); NEUTROPHILS PERCENT AUTO 62 % (41-73); Platelet Count 237 K/mm3 (150-400); RDW Coefficient Variation 14.2 % (11.7-14.2); RDW Standard Deviation 48.3 fL (35.1-46.3); Red Blood Cell Count 3.84 M/mm3 (3.80-5.20); White Blood Cell Count 7.96 K/mm3 (4.00-11.30)
[2023-05-22 13:56] LABS: Albumin, Blood 3.2 g/dL (3.4-5.0); Albumin/Globulin Ratio 0.9 (0.8-1.8); Bilirubin, Total 0.1 mg/dL (0.1-1.0); Bun/Creatinine Ratio 8.1 (12.0-20.0); Calcium, Blood 7.5 mg/dL (8.5-10.1); Creatinine, Blood 0.86 mg/dL (0.40-1.00); Globulin, Blood 3.5 g/dL (2.2-4.0); Total Protein, Blood 6.7 g/dL (6.4-8.2)
[2023-05-22 20:30] VITALS: BP 132/69
[2023-05-22] MEDS ORDERED: FAMO20 PO (20:42)
== END 2023-05-22 20:54 | disposition home or self-care (01) ==
LOC: ER 12:50
PROVIDERS: Student in an Organized Health Care Education/Training Program
DX: R07.89 Other chest pain (principal); Z91.030 Bee allergy status; Z88.5 Allergy status to narcotic agent; Z79.899 Other long term (current) drug therapy; Z79.84 Long term (current) use of oral hypoglycemic drugs; Z79.4 Long term (current) use of insulin; E11.9 Type 2 diabetes mellitus without complications; E78.5 Hyperlipidemia, unspecified; F17.200 Nicotine dependence, unspecified, uncomplicated
CPT/HCPCS: 71046; 71260; 80053; 83690; 83880; 84484; 85025; 85379; 93005; 93010; 96374-59; 99285-25; A9270; J2405; Q9967

== ENCOUNTER 2023-07-23 09:18 | Emergency (ER) | payer MEDICARE, OTHER ==
[~2023-07-23] VITALS: Ht 175.3 cm; Wt 83.9 kg
[~2023-07-23 09:18] MED LIST changes: +FAMO20 PO
[2023-07-23 10:30] VITALS: BP 111/89
== END 2023-07-23 13:06 | disposition home or self-care (01) ==
LOC: ER 09:18
DX: T83.032A Leakage of nephrostomy catheter, initial encounter (principal); Y73.8 Miscellaneous gastroenterology and urology devices associated with adverse incidents, not elsewhere classified; E11.51 Type 2 diabetes mellitus with diabetic peripheral angiopathy without gangrene; F17.200 Nicotine dependence, unspecified, uncomplicated; Z88.5 Allergy status to narcotic agent; Z91.030 Bee allergy status; Z79.899 Other long term (current) drug therapy; Z79.01 Long term (current) use of anticoagulants; Z79.84 Long term (current) use of oral hypoglycemic drugs; Z79.4 Long term (current) use of insulin
CPT/HCPCS: 99284; C1729; C1769; J7050; Q9967

== ENCOUNTER 2023-09-17 20:00 | Emergency (ER) | payer OTHER, MEDICARE ==
[~2023-09-17] VITALS: Ht 175.3 cm; Wt 83.9 kg
[2023-09-17 20:17] LABS: Hematocrit 37.1 % (33.0-51.0); Mean Corpuscular HGB 31.5 pg (26.0-34.0); Mean Corpuscular Volume 90 fL (80-100); Mean Platelet Volume 10.1 fL (9.1-12.4); Platelet Count 302 K/mm3 (150-400); RDW Coefficient Variation 14.8 % (11.7-14.2); Red Blood Cell Count 4.13 M/mm3 (3.80-5.20); White Blood Cell Count 8.62 K/mm3 (4.00-11.30)
[2023-09-17 20:43] LABS: Albumin, Blood 3.5 g/dL (3.4-5.0); Albumin/Globulin Ratio 0.9 (0.8-1.8); Bilirubin, Total 0.4 mg/dL (0.1-1.0); Bun/Creatinine Ratio 6.8 (12.0-20.0); Calcium, Blood 8.7 mg/dL (8.5-10.1); Creatinine, Blood 0.88 mg/dL (0.40-1.00); Globulin, Blood 3.8 g/dL (2.2-4.0); Potassium, Blood 2.9 mmol/L (3.5-5.5); Total Protein, Blood 7.3 g/dL (6.4-8.2)
[2023-09-17 21:03] LABS: BASOPHILS ABSOLUTE MAN 0.17 K/mm3 (0.00-0.23); BASOPHILS PERCENT MAN 2 % (0-2); EOSINOPHILS PERCENT MAN 0 % (0-6); LYMPHOCYTES ABSOLUTE MAN 2.06 K/mm3 (0.84-5.20); LYMPHOCYTES PERCENT MAN 24 % (21-46); MONOCYTES ABSOLUTE MAN 0.51 K/mm3 (0.16-1.47); MONOCYTES PERCENT MAN 6 % (4-13); NEUTROPHILS ABSOLUTE MAN 5.86 K/mm3 (1.96-9.15); SEG NEUTROPHILS PERCENT MAN 68 % (41-73); TOTAL CELLS COUNTED 100
[2023-09-17 21:15] VITALS: BP 136/70
== END 2023-09-17 21:50 | disposition home or self-care (01) ==
LOC: ER 20:00
PROVIDERS: Emergency Medicine
DX: S09.90XA Unspecified injury of head, initial encounter (principal); S40.012A Contusion of left shoulder, initial encounter; S16.1XXA Strain of muscle, fascia and tendon at neck level, initial encounter; V43.52XA Car driver injured in collision with other type car in traffic accident, initial encounter; F17.200 Nicotine dependence, unspecified, uncomplicated; E11.9 Type 2 diabetes mellitus without complications; Z88.5 Allergy status to narcotic agent; Z91.030 Bee allergy status; Z79.899 Other long term (current) drug therapy; Z79.84 Long term (current) use of oral hypoglycemic drugs; Z79.4 Long term (current) use of insulin
CPT/HCPCS: 70450; 71260; 72125; 73030; 74177; 80053; 85025; 93005; 93010; 96374; 96375; 96376; 99285-25; J1170; J2405; Q9967

== ENCOUNTER 2023-09-27 15:50 | Emergency (ER) | payer MEDICARE, OTHER ==
[~2023-09-27] VITALS: Ht 175.3 cm; Wt 83.9 kg
[2023-09-27 16:06] VITALS: BP 150/81
[2023-09-27 16:38] LABS: Source, Urine Clean Catch
[2023-09-27 16:41] LABS: BASOPHILS ABSOLUTE AUTO 0.02 K/mm3 (0.00-0.23); BASOPHILS PERCENT AUTO 0 % (0-2); EOSINOPHILS ABSOLUTE AUTO 0.16 K/mm3 (0.00-0.68); EOSINOPHILS PERCENT AUTO 3 % (0-6); Hematocrit 35.1 % (33.0-51.0); Hemoglobin 12.1 g/dL (11.5-16.0); IMMATURE GRAN ABSOLUTE AUTO 0.02 K/mm3 (0.00-0.10); IMMATURE GRAN PERCENT AUTO 0 % (0-1); LYMPHOCYTES ABSOLUTE AUTO 1.82 K/mm3 (0.84-5.20); LYMPHOCYTES PERCENT AUTO 29 % (21-46); MONOCYTES ABSOLUTE AUTO 0.42 K/mm3 (0.16-1.47); MONOCYTES PERCENT AUTO 7 % (4-13); Mean Corpuscular HGB 31.4 pg (26.0-34.0); Mean Corpuscular HGB Conc 34.5 g/dL (31.5-36.5); Mean Corpuscular Volume 91 fL (80-100); NEUTROPHILS ABSOLUTE AUTO 3.79 K/mm3 (1.96-9.15); NEUTROPHILS PERCENT AUTO 61 % (41-73); Platelet Count 265 K/mm3 (150-400); RDW Coefficient Variation 14.8 % (11.7-14.2); RDW Standard Deviation 49.5 fL (35.1-46.3); Red Blood Cell Count 3.85 M/mm3 (3.80-5.20); White Blood Cell Count 6.23 K/mm3 (4.00-11.30)
[2023-09-27 16:43] LABS: Appearance, Urine Hazy (Clear); Bilirubin, Urine Neg (Neg); Blood, Urine 5+ (Neg); Glucose Qualitative, Urine Neg (Neg); Ketones, Urine Neg (Neg); Leukocyte Esterase, Urine 3+ (Neg); Nitrite, Urine Pos (Neg); Protein, Urine 2+ (Neg); Urobilinogen, Urine NORM (Normal)
[2023-09-27 17:12] LABS: Albumin, Blood 3.4 g/dL (3.4-5.0); Bilirubin, Total 0.2 mg/dL (0.1-1.0); Bun/Creatinine Ratio 8.7 (12.0-20.0); Calcium, Blood 8.2 mg/dL (8.5-10.1); Creatinine, Blood 0.8 mg/dL (0.40-1.00); Globulin, Blood 3.4 g/dL (2.2-4.0); Potassium, Blood 3.4 mmol/L (3.5-5.5); Total Protein, Blood 6.8 g/dL (6.4-8.2)
[2023-09-27 17:16] LABS: Color, Urine Pale Yellow (P-Yellow)
[2023-09-27 17:18] LABS: Bacteria Many /hpf; Squamous Epithelial Cells Few /hpf (Few); White Blood Cells, Urine 25-50 /hpf (0-5)
[2023-09-27 17:19] LABS: Amorphous Light (0-Heavy)
[2023-09-27] MEDS ORDERED: CLONAZEPAM1 MG PO (19:41)
[2023-09-27] MEDS ORDERED: NITROGLYCERIN0.4 M3 SL (19:42)
[2023-09-27] MEDS ORDERED: OLANZAPINE1024 PO (19:42)
[2023-09-27] MEDS ORDERED: EZETIMIBE10 M6 PO (19:42)
[2023-09-27] MEDS ORDERED: PANTOPRAZOLE SO40 M2 PO (19:44)
[2023-09-27] MEDS ORDERED: PRAZ2 PO (19:45)
[2023-09-27] MEDS ORDERED: Effexor Xr150 MG PO (19:45)
[2023-09-27] MEDS ORDERED: ISOSORBIDE MONO30 MG PO (19:47)
[2023-09-27] MEDS ORDERED: Bactrim Ds Tab1 EACH PO (20:01)
== END 2023-09-27 20:45 | disposition home or self-care (01) ==
LOC: ER 15:50
PROVIDERS: Physician Assistant
DX: N39.0 Urinary tract infection, site not specified (principal); Z93.6 Other artificial openings of urinary tract status; E11.9 Type 2 diabetes mellitus without complications; E78.5 Hyperlipidemia, unspecified; I73.9 Peripheral vascular disease, unspecified; Z87.442 Personal history of urinary calculi; F17.200 Nicotine dependence, unspecified, uncomplicated; Z79.4 Long term (current) use of insulin; Z79.84 Long term (current) use of oral hypoglycemic drugs; Z79.01 Long term (current) use of anticoagulants; Z79.02 Long term (current) use of antithrombotics/antiplatelets; Z79.899 Other long term (current) drug therapy; Z88.5 Allergy status to narcotic agent; Z91.030 Bee allergy status
CPT/HCPCS: 74177; 80053; 81001; 85025; 87077; 87086; 87186; 96365; 96375; 99284-25; J0696; J1885; J7030; Q9967

== ENCOUNTER 2023-10-07 21:45 | Emergency (ER) | payer MEDICARE, OTHER ==
[~2023-10-07] VITALS: Ht 175.3 cm; Wt 85.7 kg
[~2023-10-07 21:45] MED LIST changes: +Bactrim Ds Tab1 EACH PO; +CLONAZEPAM1 MG PO; +EZETIMIBE10 M6 PO; +Effexor Xr150 MG PO; +ISOSORBIDE MONO30 MG PO; +NITROGLYCERIN0.4 M3 SL; +OLANZAPINE1024 PO
[2023-10-08 00:02] LABS: BASOPHILS ABSOLUTE AUTO 0.03 K/mm3 (0.00-0.23); BASOPHILS PERCENT AUTO 0 % (0-2); EOSINOPHILS ABSOLUTE AUTO 0.14 K/mm3 (0.00-0.68); EOSINOPHILS PERCENT AUTO 2 % (0-6); Hematocrit 38.9 % (33.0-51.0); Hemoglobin 13.4 g/dL (11.5-16.0); IMMATURE GRAN ABSOLUTE AUTO 0.03 K/mm3 (0.00-0.10); IMMATURE GRAN PERCENT AUTO 0 % (0-1); LYMPHOCYTES ABSOLUTE AUTO 2.35 K/mm3 (0.84-5.20); LYMPHOCYTES PERCENT AUTO 25 % (21-46); MONOCYTES ABSOLUTE AUTO 0.55 K/mm3 (0.16-1.47); MONOCYTES PERCENT AUTO 6 % (4-13); Mean Corpuscular HGB 31.6 pg (26.0-34.0); Mean Corpuscular HGB Conc 34.4 g/dL (31.5-36.5); Mean Corpuscular Volume 92 fL (80-100); Mean Platelet Volume 10.4 fL (9.1-12.4); NEUTROPHILS ABSOLUTE AUTO 6.15 K/mm3 (1.96-9.15); NEUTROPHILS PERCENT AUTO 67 % (41-73); Platelet Count 273 K/mm3 (150-400); RDW Coefficient Variation 14.9 % (11.7-14.2); RDW Standard Deviation 49.7 fL (35.1-46.3); Red Blood Cell Count 4.24 M/mm3 (3.80-5.20); White Blood Cell Count 9.25 K/mm3 (4.00-11.30)
[2023-10-08 00:20] LABS: Albumin, Blood 3.8 g/dL (3.4-5.0); Albumin/Globulin Ratio 0.9 (0.8-1.8); Bilirubin, Total 0.4 mg/dL (0.1-1.0); Bun/Creatinine Ratio 7.3 (12.0-20.0); Calcium, Blood 8.7 mg/dL (8.5-10.1); Creatinine, Blood 0.82 mg/dL (0.40-1.00); Globulin, Blood 4.1 g/dL (2.2-4.0); Potassium, Blood 2.8 mmol/L (3.5-5.5); Total Protein, Blood 7.9 g/dL (6.4-8.2)
[2023-10-08 01:18] LABS: Source, Urine Urostomy Bag
[2023-10-08 01:22] LABS: Appearance, Urine Cloudy (Clear); Bilirubin, Urine Neg (Neg); Blood, Urine 5+ (Neg); Color, Urine Amber (P-Yellow); Glucose Qualitative, Urine Neg (Neg); Ketones, Urine 1+ (Neg); Leukocyte Esterase, Urine 3+ (Neg); Nitrite, Urine Pos (Neg); Protein, Urine 3+ (Neg); Urobilinogen, Urine NORM (Normal); pH, Urine 6.5 (5.0-8.0)
[2023-10-08 01:34] LABS: Amorphous Light (0-Heavy); Bacteria Many /hpf; Red Blood Cells, Urine TNTC /hpf (0-2); Squamous Epithelial Cells Not Seen /hpf (Few); White Blood Cells, Urine 25-50 /hpf (0-5)
[2023-10-08 04:15] VITALS: BP 153/67
[2023-10-08] MEDS ORDERED: ONDA4ODT MM (05:31)
[2023-10-08] MEDS ORDERED: CEPH500 PO (05:31)
== END 2023-10-08 05:44 | disposition home or self-care (01) ==
LOC: ER 21:45
PROVIDERS: Student in an Organized Health Care Education/Training Program
DX: N12 Tubulo-interstitial nephritis, not specified as acute or chronic (principal); E87.6 Hypokalemia; E11.9 Type 2 diabetes mellitus without complications; E78.5 Hyperlipidemia, unspecified; F17.200 Nicotine dependence, unspecified, uncomplicated
CPT/HCPCS: 74177; 80053; 81001; 85025; 87086; 96361; 96365-59; 96375; 99284-25; A9270; J0696; J1885; J2405; J7120; Q9967

== ENCOUNTER 2024-06-12 21:30 | Observation (INO) | payer MEDICARE, OTHER ==
[~2024-06-12] VITALS: Ht 175.3 cm; Wt 81.0 kg
[2024-06-12 21:54] LABS: BASOPHILS ABSOLUTE AUTO 0.03 K/mm3 (0.00-0.23); BASOPHILS PERCENT AUTO 1 % (0-2); EOSINOPHILS ABSOLUTE AUTO 0.12 K/mm3 (0.00-0.68); EOSINOPHILS PERCENT AUTO 2 % (0-6); Hemoglobin 12.2 g/dL (11.5-16.0); IMMATURE GRAN ABSOLUTE AUTO 0.01 K/mm3 (0.00-0.10); IMMATURE GRAN PERCENT AUTO 0 % (0-1); LYMPHOCYTES ABSOLUTE AUTO 1.79 K/mm3 (0.84-5.20); LYMPHOCYTES PERCENT AUTO 31 % (21-46); MONOCYTES PERCENT AUTO 10 % (4-13); Mean Corpuscular HGB 29.4 pg (26.0-34.0); Mean Corpuscular HGB Conc 33.9 g/dL (31.5-36.5); Mean Corpuscular Volume 87 fL (80-100); Mean Platelet Volume 10.4 fL (9.1-12.4); NEUTROPHILS PERCENT AUTO 56 % (41-73); Platelet Count 201 K/mm3 (150-400); RDW Coefficient Variation 15.6 % (11.7-14.2); RDW Standard Deviation 49.8 fL (35.1-46.3); Red Blood Cell Count 4.15 M/mm3 (3.80-5.20); White Blood Cell Count 5.75 K/mm3 (4.00-11.30)
[2024-06-12 22:36] LABS: Albumin, Blood 3.5 g/dL (3.4-5.0); Bilirubin, Total 0.4 mg/dL (0.1-1.0); Bun/Creatinine Ratio 6.4 (12.0-20.0); Calcium, Blood 8.8 mg/dL (8.5-10.1); Creatinine, Blood 0.79 mg/dL (0.40-1.00); Globulin, Blood 3.5 g/dL (2.2-4.0); Potassium, Blood 3.2 mmol/L (3.5-5.5)
[2024-06-13] VITALS (13 sets, daily range): BP systolic 116–156; BP diastolic 60–83
[2024-06-13] MEDS ORDERED: Nitroglycerin 0.4 MG SUBL SL PRN ×2 (01:10→01:55)
[2024-06-13] MEDS ORDERED: FentaNYL Citrate 50 MCG/ML 2 ML Injection IV PRN (01:55)
[2024-06-13] MEDS ORDERED: NS 1,000 ML IV SCH (01:55)
[2024-06-13] MEDS ORDERED: FLU VACC TS2024-25(6MOS UP)/PF 45 MCG/0.5 ML SYRINGE IM SCH (01:55)
[2024-06-13] MEDS ORDERED: Ondansetron HCl 2 MG / ML 2ML Vial IV PRN (01:55)
[2024-06-13] MEDS ORDERED: Acetaminophen 325 MG TABLET PO PRN (01:55)
[2024-06-13] MEDS ORDERED: Potassium Chl 20MEQ/Water100ML 100 ML IV SCH (04:00)
[2024-06-13 05:00] LABS: BASOPHILS ABSOLUTE AUTO 0.02 K/mm3 (0.00-0.23); BASOPHILS PERCENT AUTO 0 % (0-2); EOSINOPHILS ABSOLUTE AUTO 0.12 K/mm3 (0.00-0.68); EOSINOPHILS PERCENT AUTO 2 % (0-6); Hematocrit 34.1 % (33.0-51.0); Hemoglobin 11.6 g/dL (11.5-16.0); IMMATURE GRAN ABSOLUTE AUTO 0.01 K/mm3 (0.00-0.10); IMMATURE GRAN PERCENT AUTO 0 % (0-1); LYMPHOCYTES ABSOLUTE AUTO 1.73 K/mm3 (0.84-5.20); LYMPHOCYTES PERCENT AUTO 33 % (21-46); MONOCYTES ABSOLUTE AUTO 0.56 K/mm3 (0.16-1.47); MONOCYTES PERCENT AUTO 11 % (4-13); Mean Corpuscular HGB 29.7 pg (26.0-34.0); Mean Corpuscular Volume 87 fL (80-100); Mean Platelet Volume 10.4 fL (9.1-12.4); NEUTROPHILS ABSOLUTE AUTO 2.76 K/mm3 (1.96-9.15); NEUTROPHILS PERCENT AUTO 53 % (41-73); Platelet Count 191 K/mm3 (150-400); RDW Coefficient Variation 15.8 % (11.7-14.2); RDW Standard Deviation 49.8 fL (35.1-46.3)
[2024-06-13 05:24] LABS: Albumin, Blood 3.2 g/dL (3.4-5.0); Bilirubin, Total 0.3 mg/dL (0.1-1.0); Bun/Creatinine Ratio 6.7 (12.0-20.0); Calcium, Blood 8.6 mg/dL (8.5-10.1); Creatinine, Blood 0.75 mg/dL (0.40-1.00); Globulin, Blood 3.2 g/dL (2.2-4.0); Potassium, Blood 3.4 mmol/L (3.5-5.5); Total Protein, Blood 6.4 g/dL (6.4-8.2)
[2024-06-13] MEDS ORDERED: Clopidogrel Bisulfate 300 MG Cap PO ONE (06:00)
[2024-06-13] MEDS ORDERED: Aspirin 81 MG Chew PO SCH (06:00)
[2024-06-13] MEDS ORDERED: Atorvastatin 40 MG Tab PO SCH (06:00)
[2024-06-13] MEDS ORDERED: Albuterol HFA200 ACT/6.7 GM INH INH PRN (06:40)
[2024-06-13 06:48] LABS: Prothrombin Time Results 10.7 Sec (9.7-11.5)
[2024-06-13] MEDS ORDERED: Heparin Sodium,Porcine/0.5 NS 500 ML IV SCH (07:25)
[2024-06-13] MEDS ORDERED: Insulin Human Lispro 100 Units/ML 3ML Syringe SC SCH (07:30)
[2024-06-13] MEDS ORDERED: Famotidine 20 MG Tab PO SCH (09:00)
[2024-06-13] MEDS ORDERED: Isosorbide Mononitrate 30 MG TABCR PO SCH (09:00)
[2024-06-13] MEDS ORDERED: Ezetimibe 10 MG Tab PO SCH (09:00)
[2024-06-13] MEDS ORDERED: Metoprolol Succinate 25 MG TABCR PO SCH (09:00)
[2024-06-13] MEDS ORDERED: Clopidogrel Bisulfate 75 MG Tab PO SCH (09:00)
[2024-06-13] MEDS ORDERED: ClonazePAM 1 MG Tab PO SCH (09:00)
[2024-06-13] MEDS ORDERED: Pantoprazole Sodium 40 MG Tab PO SCH (09:00)
[2024-06-13] MEDS ORDERED: Enoxaparin 40 MG/0.4 ML SYR SC SCH (09:00)
[2024-06-13] MEDS ORDERED: Insulin Glargine-Yfgn 100 Unit/mL 3 ML SYR SC SCH (10:00)
[2024-06-13] MEDS ORDERED: ClonazePAM 0.5 MG Tab PO SCH (12:00)
[2024-06-13] MEDS ORDERED: NS 250 ML IV ONE ×2 (15:16→16:50)
[2024-06-13] MEDS ORDERED: NS 1,000 ML IV ONE ×2 (15:16→15:45)
[2024-06-13] MEDS ORDERED: Heparin Sodium 1000 Units/ML 10ML MDV ONE ×2 (15:16→16:28)
[2024-06-13] MEDS ORDERED: Verapamil HCL 2.5 MG/ML 2ML Injection ONE (15:16)
[2024-06-13] MEDS ORDERED: Nitroglycerin 2 MG/20 ML BTL ONE (15:17)
[2024-06-13] MEDS ORDERED: Nicotine 21 MG PATCH TOP SCH (15:19)
[2024-06-13] MEDS ORDERED: NiCARdipine HCL 1,000 MCG/5 ML SYR ONE (15:25)
--- NOTE | 2024-06-13 15:26 | NUR ---
SHIFT UPDATE: PT ARRIVED FROM THE ED TO PCU 19 AT 1238. NS AND HEPARIN GTT WERE RUNNING AND CONTINUED AFTER ARRIVAL. PT WALKED FROM THE GURNEY IN DOORWAY TO BED IN ROOM AND REPORTED SOME DIZZINESS WITH AMBULATION. PT WAS DRESSED DOWN AND PLACED ON TELE. VS WERE OBATINED AND WERE WNL. PT IS ALERT AND ORIENTED X4. DENIES ANY NEURO COMPLAINTS. PT HAS DENIES ANY CP, SOB, PAIN, OR ANY OTHER COMPLAINTS SINCE ARRIVAL TO PCU. ECHO WAS PERFORMED AND CARDIAOLOGIST CAME TO BEDSIDE TO DISCUSS PLAN FOR AN ANGIOGRAM THIS AFTERNOON. PT AGREEABLE TO PLAN AND SIGNED CONCENT FORM WAS SIGNED. FAMILY IS AT BEDSIDE AT THIS TIME. PT ASKING TO GO OUTSIDE TO SMOKE. PROVIDER CALLED AND AWAITING NICOTINE PATCH ORDER. PT REMAINS NPO FOR ANGIO. PT DENIES ANY FURTHER NEEDS OR COMPLAINTS AT THIS TIME.
[2024-06-13] MEDS ORDERED: Midazolam HCl 1MG / ML 2ML Vial ONE ×2 (15:45→16:24)
[2024-06-13] MEDS ORDERED: FentaNYL Citrate 50 MCG/ML 2 ML Injection ONE ×2 (15:45→16:23)
--- NOTE | 2024-06-13 17:00 | NUR ---
BEDSIDE REPORT GIVEN TO DORIE VALENCIA. FAMILY PRESENT AT BEDSIDE. R ULNAR TR BAND FULLY INFLATED. SITE C/D/I SOFT/NONTENDER, NO EVIDENCE OF BLEEDING. VSS ON RA
--- NOTE | 2024-06-13 18:41 | NUR ---
PT ARRIVED BACK TO ROOM FROM ANGIOGRAM AROUND 1654. TR BAND IN PLACE TO R ULNAR. SENSATION AND CAP REFILL PRESENT. PT AWAKE AND ALERT BUT IS STILL COMING OFF OF SEDATION MEDS. FLUIDS STARTED. PT PLACED ON VS MONITORNING. VSS. FAMILY AT BEDSIDE. 6ML DEFLATED FROM TR BAND SO FAR BY THIS RN. NO BLEEDING OR HEMATOMA PRESENT AT THIS TIME. CAP REFILL PRESENT. PT SLEEPING AT THIS TIME WITH EQUAL NONLABORED RESPIRATIONS. THIS RN WILL CONTINUE TO CARE FOR THIS PT UNTIL SHIFT CHANGE.
[2024-06-13] MEDS ORDERED: Prazosin HCl 1 MG Cap PO SCH (21:00)
[2024-06-13] MEDS ORDERED: OLANZapine 10 MG Tab PO SCH (21:00)
[2024-06-14] VITALS (7 sets, daily range): BP systolic 124–148; BP diastolic 58–76
[2024-06-14 04:14] LABS: Hematocrit 35.4 % (33.0-51.0); Hemoglobin 12.2 g/dL (11.5-16.0); Mean Corpuscular HGB Conc 34.5 g/dL (31.5-36.5); Mean Corpuscular Volume 87 fL (80-100); Mean Platelet Volume 10.8 fL (9.1-12.4); Platelet Count 195 K/mm3 (150-400); RDW Coefficient Variation 15.6 % (11.7-14.2); RDW Standard Deviation 49.7 fL (35.1-46.3); Red Blood Cell Count 4.06 M/mm3 (3.80-5.20); White Blood Cell Count 5.77 K/mm3 (4.00-11.30)
[2024-06-14 04:43] LABS: Bun/Creatinine Ratio 8.5 (12.0-20.0); Creatinine, Blood 0.82 mg/dL (0.40-1.00); Potassium, Blood 3.6 mmol/L (3.5-5.5)
--- NOTE | 2024-06-14 05:36 | NUR ---
SHIFT SUMMARY PT ORIENTED X4, ALTHOUGH REMAINS TIRED. PT DID WAKE UP BRIEFLY TO EAT A SNACK AND USE RESTROOM, OTHERWISE RESTED THE ENTIRE SHIFT. NO ACUTE EVENTS. VSS; SBP 120 - 140S, HRR SR WITH FIRST DEGREE BLOCK PER TELE. NO TELE EVENTS. REMAINS ON RA WITH SPO2 90 - 95%. AFEBRILE. TR BAND FULLY RECOVERED, TEGADERM AND ARMBOARD IN PLACE. SITE WNL; NO HEMATOMA. COLOR AND TEMPERATURE WNL, NO NUMBNESS/TINGLING OR PAIN. IVF PER NOV COMPLETED. PT IND/SBA TO RESTROOM, STEADY GAIT. PT EDUCATED ON RESTRICTIONS FOR ARM S/P ANGIO. VERBALIZED UNDERSTANDING. NO EVENTS OF CP/PRESSURE, DENIES DIZZINESS, DYSPNEA, N/V. ABLE TO MAKE NEEDS KNOWN, CALL LIGHT IN REACH. WILL UPDATE ONCOMING RN.
[2024-06-14] MEDS ORDERED: Rivaroxaban 2.5 MG TABLET PO SCH (08:00)
[2024-06-14] MEDS ORDERED: Aspirin 81 MG Chew PO SCH (09:00)
[2024-06-14] MEDS ORDERED: ATORVASTATIN CA40 M1 PO (10:47)
[2024-06-14] MEDS ORDERED: INSULANPEN SC (11:06)
--- NOTE | 2024-06-14 12:15 | NUR ---
PT DISCHARGED TO HOME WITH . DC INSTRUCTIONS AND PT EDUCATION WAS GONE OVER AND ALL OF PTS QUESTIONS AND CONCERNS WERE ADDRESSES. PT DENIES ANY FURTHER QUESTIONS OR CONCERNS. BELONGINGS WERE COLLECTED AND SENT HOME WITH PT.
== END 2024-06-14 12:30 | disposition home or self-care (01) ==
LOC: ER 21:30 → ERHOLD 21:31 → PCU 06-13 12:32
PROVIDERS: Physician Assistant; ADMIT Internal Medicine
DX: R07.89 Other chest pain (principal); E11.51 Type 2 diabetes mellitus with diabetic peripheral angiopathy without gangrene; E78.5 Hyperlipidemia, unspecified; J44.9 Chronic obstructive pulmonary disease, unspecified; F17.210 Nicotine dependence, cigarettes, uncomplicated; I11.0 Hypertensive heart disease with heart failure; I50.9 Heart failure, unspecified; Z79.84 Long term (current) use of oral hypoglycemic drugs; Z79.899 Other long term (current) drug therapy; Z79.4 Long term (current) use of insulin; Z88.5 Allergy status to narcotic agent; Z91.030 Bee allergy status
CPT/HCPCS: 36415; 71046; 76937; 80048; 80053; 82947; 83690; 83880; 84484; 85025; 85027; 85520; 85610; 85730; 93005; 93010; 93306; 93458; 94760; 96365; 96366; 96367; 96372-59; 99152; 99285-25; A9270; C1769; C1894; G0378; J1644; J1650; J1815; J2250; J3010; J3480; J7030; J7050; Q9967

== ENCOUNTER → 2024-06-21 | Outpatient (CLI) | payer MEDICARE, OTHER ==
[~2024-06-21] MED LIST changes: +ATORVASTATIN CA40 M1 PO
== END | disposition home or self-care (01) ==
LOC: LAB SHORT 14:25 → LAB 14:25
DX: N39.0 Urinary tract infection, site not specified (principal)
CPT/HCPCS: 87077; 87086; 87186

== ENCOUNTER → 2025-04-13 | Outpatient (CLI) | payer MEDICARE, OTHER | LOC: LAB SHORT 15:59 → LAB 15:59 | DX: N39.0 Urinary tract infection, site not specified (principal); R31.9 Hematuria, unspecified | CPT/HCPCS: 87077; 87086; 87186 ==